=== PATIENT | male | born 1975 | race Two or more races ===

== ENCOUNTER 2023-12-19 09:15 | Emergency (ER) | payer OTHER, MEDICAID, SELFPAY ==
[2023-12-19 09:25] VITALS: BP 147/92; PULSE 127; RESP 20; TEMP 38.9; O2SAT 97; BMI 42.3
--- NOTE | 2023-12-19 09:37 | EKG_ITS ---
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
--- NOTE | 2023-12-19 09:38 | XR_ITS ---
Examination: PA lateral chest 2 views Technique: Upright PA lateral chest 2 views Exam date and time: December 19, 2023 0956 hrs. Indications: Flu symptoms several days Findings: Mild prominence left ventricle No pneumonia or pulmonary edema The osseous structures are intact Impression: No pneumonia or pulmonary edema
--- NOTE | 2023-12-19 09:38 | PD.EDRME ---
Rapid Medical Screening Exam RME Arrival date/time: 12/19/23 09:15 48-year-old male with past medical history of diabetes presents emergency department complaining of fever, body aches, and headache for several days. Chief Complaint: Flu Like Symptoms Time Seen by Provider: 12/19/23 09:30 Vital signs: Vital Signs Temperature 102.0 F H 12/19/23 09:25 Pulse Rate 127 H 12/19/23 09:25 Respiratory Rate 20 12/19/23 09:25 Blood Pressure 147/92 H 12/19/23 09:25 Pulse Oximetry (%) 97 12/19/23 09:25 Oxygen Delivery Method Room Air 12/19/23 09:25
[2023-12-19 10:10] LABS: Lactate (Lactic Acid) 1.3 mMol/L (0.4-2.0)
[2023-12-19 10:12] VITALS: TEMP 38.8
[2023-12-19] MEDS: ACETAMINOPHEN 500 MG TABLET 1000 MG PO (10:12)
[2023-12-19 10:22] LABS: Basophils % (Auto) 0 % (0-2.5); Eosinophils % (Auto) 0 % (0-10); Hematocrit 41.3 % (41.0-53.0); Hemoglobin 14.3 g/dL (13.5-16.0); Immature Granulocytes % (Auto) 0 % (0-0); Immature Granulocytes Auto 0.02 Thou/mm3 (0.00-0.00); Lymphocytes # (Auto) 0.4 Thou/mm3 (1.0-4.8); Lymphocytes % (Auto) 8 % (10-50); Mean Corpuscular HGB Conc 34.6 g/dl (31.0-37.0); Mean Corpuscular Hemoglobin 31.2 pg (25.0-35.0); Mean Corpuscular Volume 90 fL (80-100); Monocytes # (Auto) 0.4 Thou/mm3 (0.0-0.8); Monocytes % (Auto) 7 % (0-12); Neutrophils # (Auto) 4.5 Thou/mm3 (1.8-7.7); Neutrophils % (Auto) 85 % (37-80); Nucleated Red Blood Cell % 0 /100 WBC (0); Platelet Count 121 Thou/mm3 (140-440); RDW Standard Deviation 41.6 fL (35.1-43.9); Red Blood Count 4.59 Miln/mm3 (4.50-5.90); White Blood Count 5.3 Thou/mm3 (3.8-10.6)
[2023-12-19 10:22] LABS: Collection Type, Urine Clean Catch
[2023-12-19 10:36] LABS: B-Type Natriuretic Peptide 41 pg/mL (0-100)
[2023-12-19 10:37] LABS: Alanine Aminotransferase 13 U/L (10-49); Albumin, Serum 4.7 gm/dL (3.5-5.0); Albumin/Globulin Ratio 1.6 (1.2-2.2); Alkaline Phosphatase 124 U/L (46-116); Anion Gap 6 (7-16); Aspartate Amino Transferase 23 U/L (0-34); BUN/Creatinine Ratio 8 Ratio (12-20); Bilirubin,Total 1.2 mg/dL (0.3-1.2); Blood Urea Nitrogen 9 mg/dL (9-23); Calcium 9.5 mg/dL (8.3-10.6); Calcium (Corrected) 9.5 mg/dL (8.5-10.1); Carbon Dioxide 28.7 mMol/L (20.0-31.0); Chloride 99 mMol/L (98-107); Creatinine (Component) 1.2 mg/dL (0.6-1.3); Estimated Creatinine Clearance 101.7 mL/min (>60); Glucose 196 mg/dL (74-106); Lipase 39 U/L (12-53); Magnesium 1.9 mg/dL (1.6-2.6); Osmolality,Calculated 271 (275-295); Potassium 3.8 mMol/L (3.4-5.1); Procalcitonin 0.28 ng/ml (0.0-0.49); Sodium 134 mMol/L (136-145); Total Protein 7.7 gm/dL (5.7-8.2); Troponin I < 0.020 ng/mL (0.0-0.045); eGFR > 60 See Note
[2023-12-19 10:51] LABS: Bilirubin,Urine Negative (Negative); Blood,Urine Trace (Negative); Clarity,Urine Turbid (Clear/Hazy); Color,Urine Lt-Yellow (Lt Yel-Yel); Glucose, Urine Trace (Negative); Ketones,Urine Negative (Negative); Leukocyte Esterase,Urine Positive (Negative); PH,Urine 7.5 (5.0-7.0); Protein,Urine 1+ (Neg - Trace); RBC,Urine 18 /hpf (0-3); Specific Gravity,Urine 1.011 (1.001-1.035); Squamous Epithelial Cell,Urine 1 /hpf (0-5); Transitional Epi Cells,Urine 2 /hpf (0-5); Urobilinogen,Urine Negative mg/dL (0.0-1.0); WBC,Urine 698 /hpf (0-5)
[2023-12-19 10:56] LABS: Culture Indicated,Urine Yes; Nitrite,Urine Negative (Negative)
[2023-12-19 11:06] LABS: INR 1.1 (0.9-1.3); Partial Thromboplastin Time 29.6 Seconds (22.0-36.0); Prothrombin Time 11.7 Seconds (9.0-12.2)
[2023-12-19 12:31] VITALS: BP 116/81; PULSE 75; RESP 18; TEMP 36.9; O2SAT 99
--- NOTE | 2023-12-19 12:37 | PD.EDURI ---
Upper Respiratory Inf. RME/HPI General Chief Complaint: Flu Like Symptoms Stated Complaint: FLU SX FOR A FEW DAYS Time Seen by Provider: 12/19/23 09:30 Arrival date/time: 12/19/23 09:15 RME / HPI RME / HPI Narrative: 48-year-old male patient with significant history of psych disorder, came in for evaluation regarding dysuria. Patient's been having dysuria for the last few days associated with on and off low-grade fever. Denies any cough denies any other complaints no medication was taken prior to arrival. Related Data Home Medications ?Medication ?Instructions ?Recorded ?Confirmed atorvastatin 80 mg tablet 80 mg PO QPM 07/27/21 11/28/23 gabapentin 800 mg tablet 800 mg PO TID 07/27/21 11/28/23 sertraline 100 mg tablet 250 mg PO DAILY 07/27/21 11/28/23 aripiprazole 15 mg tablet 15 mg PO QDAY 06/18/23 11/28/23 tamsulosin 0.4 mg capsule 0.4 mg PO QDAY 06/18/23 11/28/23 cholecalciferol (vitamin D3) 50 50 mcg PO DAILY 11/27/23 11/28/23 mcg (2,000 unit) capsule (Vitamin D3) mirabegron 50 mg tablet,extended 50 mg PO DAILY 11/27/23 11/28/23 release 24 hr (Myrbetriq) omeprazole 20 mg capsule,delayed 20 mg PO QDAY 11/27/23 11/28/23 release trazodone 100 mg tablet 100 mg PO QDAY 11/27/23 11/28/23 ursodiol 300 mg capsule 300 mg PO BID 11/27/23 11/28/23 Previous Rx's ?Medication ?Instructions ?Recorded levetiracetam 500 mg tablet 500 mg PO BID #30 tabs 11/24/22 (Keppra) blood sugar diagnostic (Accu-Chek #50 ea 11/28/23 Guide test strips) blood-glucose meter #1 ea 11/28/23 lancets 30 gauge #100 ea 11/28/23 losartan 25 mg tablet 25 mg PO QDAY #90 tabs 11/28/23 multivitamin with folic acid 400 1 tab PO QDAY #90 tabs 11/28/23 mcg tablet (Tab-A-Willi) semaglutide 14 mg tablet (Rybelsus) 14 mg PO QDAY #90 tabs 11/28/23 ciprofloxacin HCl 500 mg tablet 500 mg PO BID #14 tabs 12/19/23 Allergies Allergy/AdvReac Type Severity Reaction Status Date / Time hydrocodone [From Vicodin] Allergy UNKNOWN Verified 12/19/23 09:17 Penicillins Allergy UNKNOWN Verified 12/19/23 09:17 Review of Systems Review of Systems Narrative Review of Systems: Review of system reviewed and within normal limits except mentioned in HPI ED Exam Narrative Physical exam: VITAL SIGNS: Reviewed. GENERAL APPEARANCE: Alert and interactive, follows commands, no acute distress, HEAD AND FACE: Non-traumatic. ENT: PERRL, pink conjunctivitis, eyelid no trauma, Mucous membrane moist. NECK: Supple, nontender, no nuchal rigidity. CHEST: No tenderness, no crepitus, no paradoxical movement, no retractions. LUNGS: Clear, well ventilated, symmetric, no rales, no wheezing, no ronchi, no stridor, good breath sounds bilaterally. HEART: Regular rate, regular rhythm, no murmur, no gallops. ABDOMEN: Soft, positive bowel sounds, nondistended, no guarding, nontender, no rebound, no masses, RECTAL: Deferred. GENITAL: Deferred. NEUROLOGICAL: Gross motor function intact sensory function intact, Appropriate for age. MUSCULOSKELETAL: low back nontender, full range of motion. EXTREMITIES: Nontender, full range of motion. SKIN: Color pink, dry, no rash, no lacerations, no abrasions, no contusions. LYMPHATICS: Deferred. Course Quality Measures none Orders Category Date Time Status Bedside COVID-19 Antigen Test NOW Care 12/19/23 09:38 Completed Bedside Influenza A&B Antigen Test NOW Care 12/19/23 09:38 Completed EKG (ED ONLY) *Do not use* NOW Care 12/19/23 09:37 Completed EKG (ED Only) Stat Exams 12/19/23 09:37 Draft XR chest 2V Stat Exams 12/19/23 09:38 Completed B-Type Natriuretic Peptide Stat Lab 12/19/23 09:53 Completed Blood Culture (Lab) Stat Lab 12/19/23 09:53 Results CBC Stat Lab 12/19/23 09:53 Completed Comprehensive Metabolic Panel Stat Lab 12/19/23 09:53 Completed Lactate (Lactic Acid) Stat Lab 12/19/23 09:53 Completed Lipase Stat Lab 12/19/23 09:53 Completed Magnesium Stat Lab 12/19/23 09:53 Completed Partial Thromboplastin Time Stat Lab 12/19/23 09:53 Completed Procalcitonin Stat Lab 12/19/23 09:53 Completed Prothrombin Time with INR Stat Lab 12/19/23 09:53 Completed Troponin I Stat Lab 12/19/23 09:53 Completed Urinalysis, C/S if Indicated Stat Lab 12/19/23 10:14 Completed Urine Culture Stat Lab 12/19/23 10:14 Received Acetaminophen Tab [Tylenol ES Tab] Med 12/19/23 09:38 Discontinued 1,000 mg PO X1 ONE cefTRIAXone [Rocephin] 1,000 mg Med 12/19/23 12:37 Discontinued Lidocaine 1% 20 ml [Xylocaine 1% 20 ML] 2.1 ml IM X1 Vital Signs Vital signs: Vital Signs Temperature 102.0 F H 12/19/23 09:25 Pulse Rate 127 H 12/19/23 09:25 Respiratory Rate 20 12/19/23 09:25 Blood Pressure 147/92 H 12/19/23 09:25 Pulse Oximetry (%) 97 12/19/23 09:25 Oxygen Delivery Method Room Air 12/19/23 09:25 Upper Respiratory Infection Patient data External records reviewed:: None Clinical information provided by:: patient Social determinants that could affect healthcare access:: none Patient has the following chronic illnesses:: Hypertension, diabetes mellitus, depression, psych disorder How is presenting disease/condition affected by chronic disease/condition?: exacerbated by Evaluation data The following diagnostics were reviewed and interpreted by me:: lab results, radiology exam(s) and EKG tracing(s) Lab and/or radiology exams considered but not ordered:: None Interpretation Summary: EKG as interpreted by me showed sinus tachycardia, ventricular rate of 132 bpm, no ST segment elevation or depression noted. Laboratory workup came back with significant UTI no leukocytosis noted. I personally reviewed and interpreted the x-ray of this patient. There is no acute abnormalities found, no infiltrates no pneumothorax no hemothorax normal chest x-ray. Review of other structures was without significant abnormal findings also. I additionally reviewed the radiologist report and agree with the interpretation. Medications / Prescriptions Medications or Prescriptions considered but not ordered:: None Medication administrations:: Medication Administration History Discontinued Medications Acetaminophen (Acetaminophen 500 Mg Tablet) 1,000 mg PO X1 ONE Stop: 12/19/23 09:39 Last Admin: 12/19/23 10:12 Dose: 1,000 mg Documented By: NELLY Ceftriaxone Sodium 1,000 mg/ (Lidocaine HCl 2.1 ml) 0 mg IM X1 ONE Stop: 12/19/23 12:38 Last Admin: 12/19/23 13:39 Dose: 1,000 mg Documented By: JOSE Comments: mixed with 1.2ml of lido Tylenol and ceftriaxone IM Consultations Consultation(s) initiated? (list below): No Diagnosis Upper Respiratory Differential Diagnosis: upper respiratory infection, viral infection and other ( uri) Most likely diagnosis given after review of the tests above:: UTI Admission Indicated Admission indicated?: not indicated Explain why admission is indicated or not indicated:: Stable Admission Request Was there a request for admission?: No Disposition Plan Disposition Plan: Discharge Discharge Attestation Discharge Attestation: The patient and all family members were given an opportunity to ask questions and understood the discharge instructions. Discharge instructions specifically effects, indications for sooner follow up or return to the emergency department, and the expected course of current diagnosis. Patient condition: Stable Discharge Plan Plan Patient Disposition: HOME (Self Care) Disposition Comment: stable Prescriptions/Referrals Prescriptions/Med Rec: New ciprofloxacin HCl 500 mg tablet 500 mg PO BID Qty: 14 0RF No Action sertraline 100 mg tablet 250 mg PO DAILY gabapentin 800 mg tablet 800 mg PO TID atorvastatin 80 mg Tablet 80 mg PO QPM trazodone 100 mg Tablet 100 mg PO QDAY ursodiol 300 mg capsule 300 mg PO BID Patient Comments: TAKE 1 CAPSULE BY MOUTH TWICE DAILY omeprazole 20 mg Capsule,Delayed Release(Dr/Ec) 20 mg PO QDAY cholecalciferol (vitamin D3) [Vitamin D3] 50 mcg (2,000 unit) Capsule 50 mcg PO DAILY mirabegron [Myrbetriq] 50 mg tablet extended release 24 hr 50 mg PO DAILY losartan 25 mg tablet 25 mg PO QDAY Qty: 90 0RF Rx Instructions: Stop losartan if SBP drops below 100 and DBP below 60 Rybelsus 14 mg tablet 14 mg PO QDAY Qty: 90 0RF (DME) blood-glucose meter Misc See Rx Instructions .Route Qty: 1 0RF Rx Instructions: As directed (DME) lancets 30 gauge misc See Rx Instructions .Route Qty: 100 0RF Rx Instructions: As directed (DME) Accu-Chek Guide test strips Strip See Rx Instructions .Route Qty: 50 0RF Rx Instructions: As directed multivitamin with folic acid [Tab-A-Willi] 400 mcg Tablet 1 tab PO QDAY Qty: 90 0RF levetiracetam [Keppra] 500 mg tablet 500 mg PO BID Qty: 30 1RF tamsulosin 0.4 mg capsule 0.4 mg PO QDAY aripiprazole 15 mg tablet 15 mg PO QDAY Referrals: No Primary/Family,Physician [Primary Care Provider] - In 1 week Problem List Clinical Impression: UTI (urinary tract infection) Patient/Caregiver Discharge Instructions Discharge Activity: activity as tolerated Education Materials: Understanding Urinary Tract ... Additional Instructions: Thank you for the opportunity for serving you today. You are stable for discharged . You are advised to: Follow-up with your PCP in 1 to 2 days Return to ED for worsening of symptoms Increase oral fluids Take medication as prescribed Print Language: Citizen Of [place] Stand Alone Forms: Ann Award Info., Patient Portal Info Letter Attestation Attestation The patient was seen by the midlevel practitioner. I, the co-signing physician, was present during the entire ER visit. While I did not physically examine the patient, I was available for consultation as needed.
[2023-12-19] MEDS: cefTRIAXone 1,000 MG, LIDOCAINE 1% 20 ML 2.1 ML IM (13:39)
--- NOTE | 2023-12-19 13:40 | PC.NURSE ---
IM ROCEPHINE GIVE. PT HAS ALLERGY TO PCN BUT HAS HAD ROCEPHINE IV BEFORE WITHOUT ANY COMPLICATIONS
== END 2023-12-19 14:13 | disposition home or self-care (01) ==
PROVIDERS: Emergency Provider Emergency Medicine
DX: N39.0 Urinary tract infection, site not specified (principal); R00.0 Tachycardia, unspecified; I10 Essential (primary) hypertension
CPT/HCPCS: 36415; 71046; 80053; 81001; 83605; 83690; 83735; 83880; 84145; 84484; 85025; 85610; 85730; 87040; 87086; 87400; 87811; 93005; 96372; 99283; J0696; J3490; A9270

== ENCOUNTER 2024-01-14 18:16 | Emergency (ER) | payer OTHER, MEDICAID, SELFPAY ==
[2024-01-14 18:19] VITALS: BP 96/68; PULSE 74; RESP 18; TEMP 36.6; O2SAT 97
[2024-01-14 18:24] VITALS: PULSE 81; RESP 18; O2SAT 97; BMI 40.0
--- NOTE | 2024-01-14 18:27 | EKG_ITS ---
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
--- NOTE | 2024-01-14 18:28 | PD.EDADULT ---
ED General RME/HPI General Chief complaint: General Adult/Misc Complain Stated complaint: LOW BLOOD PRESSURE Time Seen by Provider: 01/14/24 18:26 Arrival date/time: 01/14/24 18:16 RME / HPI RME / HPI narrative: 48-year-old male patient with significant history of hypertension, seizure disorder, was brought in by EMS for evaluation regarding dizziness. Patient was lying in bed and was noted to be dizzy, with AMS [place] patient's blood pressure was on the mid 90s. Patient denies any headache denies any chest pain denies any vomiting denies any fever denies any diarrhea patient told me that he took his blood pressure medication earlier this morning. Related Data Home Medications ?Medication ?Instructions ?Recorded ?Confirmed atorvastatin 80 mg tablet 80 mg PO QPM 07/27/21 11/28/23 gabapentin 800 mg tablet 800 mg PO TID 07/27/21 11/28/23 sertraline 100 mg tablet 250 mg PO DAILY 07/27/21 11/28/23 aripiprazole 15 mg tablet 15 mg PO QDAY 06/18/23 11/28/23 tamsulosin 0.4 mg capsule 0.4 mg PO QDAY 06/18/23 11/28/23 cholecalciferol (vitamin D3) 50 50 mcg PO DAILY 11/27/23 11/28/23 mcg (2,000 unit) capsule (Vitamin D3) mirabegron 50 mg tablet,extended 50 mg PO DAILY 11/27/23 11/28/23 release 24 hr (Myrbetriq) omeprazole 20 mg capsule,delayed 20 mg PO QDAY 11/27/23 11/28/23 release trazodone 100 mg tablet 100 mg PO QDAY 11/27/23 11/28/23 ursodiol 300 mg capsule 300 mg PO BID 11/27/23 11/28/23 Previous Rx's ?Medication ?Instructions ?Recorded levetiracetam 500 mg tablet 500 mg PO BID #30 tabs 11/24/22 (Keppra) blood sugar diagnostic (Accu-Chek #50 ea 11/28/23 Guide test strips) blood-glucose meter #1 ea 11/28/23 lancets 30 gauge #100 ea 11/28/23 losartan 25 mg tablet 25 mg PO QDAY #90 tabs 11/28/23 multivitamin with folic acid 400 1 tab PO QDAY #90 tabs 11/28/23 mcg tablet (Tab-A-Willi) semaglutide 14 mg tablet (Rybelsus) 14 mg PO QDAY #90 tabs 11/28/23 ciprofloxacin HCl 500 mg tablet 500 mg PO BID #14 tabs 12/19/23 Allergies Allergy/AdvReac Type Severity Reaction Status Date / Time hydrocodone [From Vicodin] Allergy UNKNOWN Verified 12/19/23 09:17 Penicillins Allergy UNKNOWN Verified 12/19/23 09:17 Review of Systems Review of Systems Narrative Review of Systems: Review of system reviewed and within normal limits except mentioned in HPI ED Exam Narrative Physical exam: VITAL SIGNS: Reviewed. GENERAL APPEARANCE: Alert and interactive, follows commands, no acute distress, HEAD AND FACE: Non-traumatic. ENT: PERRL, pink conjunctivitis, eyelid no trauma, Mucous membrane moist. NECK: Supple, nontender, no nuchal rigidity. CHEST: No tenderness, no crepitus, no paradoxical movement, no retractions. LUNGS: Clear, well ventilated, symmetric, no rales, no wheezing, no ronchi, no stridor, good breath sounds bilaterally. HEART: Regular rate, regular rhythm, no murmur, no gallops. ABDOMEN: Soft, positive bowel sounds, nondistended, no guarding, nontender, no rebound, no masses, RECTAL: Deferred. GENITAL: Deferred. NEUROLOGICAL: Gross motor function intact sensory function intact, Appropriate for age. MUSCULOSKELETAL: low back nontender, full range of motion. EXTREMITIES: Nontender, full range of motion. SKIN: Color pink, dry, no rash, no lacerations, no abrasions, no contusions. LYMPHATICS: Deferred. Course Quality Measures none Orders Category Date Time Status EKG (ED ONLY) *Do not use* NOW Care 01/14/24 18:27 Completed EKG (ED Only) Stat Exams 01/14/24 18:27 Draft CBC Stat Lab 01/14/24 18:40 Completed Comprehensive Metabolic Panel Stat Lab 01/14/24 18:40 Completed Partial Thromboplastin Time Stat Lab 01/14/24 18:40 Completed Urinalysis, C/S if Indicated Stat Lab 01/14/24 18:27 Stop Req Vital Signs Vital signs: Vital Signs Temperature 98 F 01/14/24 18:19 Pulse Rate 74 01/14/24 18:19 Respiratory Rate 18 01/14/24 18:19 Blood Pressure 96/68 01/14/24 18:19 Pulse Oximetry (%) 97 01/14/24 18:19 Oxygen Delivery Method Room Air 01/14/24 18:19 [facility] Patient data External records reviewed:: None Clinical information provided by:: patient Social determinants that could affect healthcare access:: none Patient has the following chronic illnesses:: Diabetes hypertension seizure disorder How is presenting disease/condition affected by chronic disease/condition?: exacerbated by Evaluation data The following diagnostics were reviewed and interpreted by me:: lab results and radiology exam(s) Lab and/or radiology exams considered but not ordered:: None Interpretation Summary: EKG also interpreted by me showed sinus rhythm, ventricular rate of 86 bpm, no ST segment elevation or depression noted. Laboratory workup all came back unremarkable Medications Medications considered but not ordered:: None Medication administrations:: None Consultations Consultation(s) initiated? (list below): No Diagnosis Differential Diagnosis ED Complaint MDM: Dizziness, dehydration, hypotension Most likely diagnosis given after review of the tests above:: Dizziness Admission Indicated Admission indicated?: not indicated Explain why admission is indicated or not indicated:: Stable Admission Request Was there a request for admission?: No Disposition Plan Disposition Plan: Discharge Discharge Attestation Discharge Attestation: The patient was given an opportunity to ask questions and understood the discharge instructions. Discharge instructions specifically effects, indications for sooner follow up or return to the emergency department, and the expected course of current diagnosis. Patient condition: Stable Medical Decision Making Differential Diagnosis Differential Diagnosis: Dizziness, dehydration, hypotension Lab Data 01/14/24 18:40 01/14/24 18:40 Labs: Lab Results 01/14/24 Range/Units 18:40 WBC 5.0 (3.8-10.6) Thou/mm3 RBC 4.24 L (4.50-5.90) Miln/mm3 Hgb 13.2 L (13.5-16.0) g/dL Hct 38.3 L (41.0-53.0) % MCV 90 (80-100) fL MCH 31.1 (25.0-35.0) pg MCHC 34.5 (31.0-37.0) g/dl RDW Std Deviation 41.1 (35.1-43.9) fL Plt Count 94 L D (140-440) Thou/mm3 Neut % (Auto) 47 (37-80) % Lymph % (Auto) 41 (10-50) % [place] % (Auto) 10 (0-12) % Eos % (Auto) 2 (0-10) % Baso % (Auto) 0 (0-2.5) % Neut # (Auto) 2.4 (1.8-7.7) Thou/mm3 Lymph # (Auto) 2.0 (1.0-4.8) Thou/mm3 [place] # (Auto) 0.5 (0.0-0.8) Thou/mm3 Eos # (Auto) 0.1 (0.0-0.5) Thou/mm3 Baso # (Auto) 0.0 (0.0-0.2) Thou/mm3 Immature Gran # (Auto) 0.00 (0.00-0.00) Thou/mm3 Absolute Nucleated RBC 0.00 (0.00-0.00) Thou/mm3 Immature Gran % 0 (0-0) % Nucleated RBC % 0 (0) /100 WBC APTT 26.0 (22.0-36.0) Seconds Sodium 140 (136-145) mMol/L Potassium 3.4 (3.4-5.1) mMol/L Chloride 101 (98-107) mMol/L Carbon Dioxide 31.4 H (20.0-31.0) mMol/L Anion Gap 8 (7-16) BUN 15 (9-23) mg/dL Creatinine 1.4 H (0.6-1.3) mg/dL Estim Creat Clear Calc 87.1 (>60) mL/min eGFR > 60 (60 - ) See Note BUN/Creatinine Ratio 11 L (12-20) Ratio Glucose 122 H (74-106) mg/dL Calculated Osmolality 281 (275-295) Calcium 9.3 (8.3-10.6) mg/dL Corrected Calcium 9.3 (8.5-10.1) mg/dL Total Bilirubin 0.4 (0.3-1.2) mg/dL AST 19 (0-34) U/L ALT 14 (10-49) U/L Alkaline Phosphatase 118 H (46-116) U/L Total Protein 6.7 (5.7-8.2) gm/dL Albumin 4.4 (3.5-5.0) gm/dL Globulin 2.3 (2.3-3.5) gm/dL Albumin/Globulin Ratio 1.9 (1.2-2.2) Discharge Plan Plan Patient Disposition: HOME (Self Care) Disposition Comment: Stable Prescriptions/Referrals Prescriptions/Med Rec: No Action sertraline 100 mg tablet 250 mg PO DAILY gabapentin 800 mg tablet 800 mg PO TID atorvastatin 80 mg Tablet 80 mg PO QPM trazodone 100 mg Tablet 100 mg PO QDAY ursodiol 300 mg capsule 300 mg PO BID Patient Comments: TAKE 1 CAPSULE BY MOUTH TWICE DAILY omeprazole 20 mg Capsule,Delayed Release(Dr/Ec) 20 mg PO QDAY cholecalciferol (vitamin D3) [Vitamin D3] 50 mcg (2,000 unit) Capsule 50 mcg PO DAILY mirabegron [Myrbetriq] 50 mg tablet extended release 24 hr 50 mg PO DAILY losartan 25 mg tablet 25 mg PO QDAY Qty: 90 0RF Rx Instructions: Stop losartan if SBP drops below 100 and DBP below 60 Rybelsus 14 mg tablet 14 mg PO QDAY Qty: 90 0RF (DME) blood-glucose meter Misc See Rx Instructions .Route Qty: 1 0RF Rx Instructions: As directed (DME) lancets 30 gauge misc See Rx Instructions .Route Qty: 100 0RF Rx Instructions: As directed (DME) Accu-Chek Guide test strips Strip See Rx Instructions .Route Qty: 50 0RF Rx Instructions: As directed multivitamin with folic acid [Tab-A-Willi] 400 mcg Tablet 1 tab PO QDAY Qty: 90 0RF ciprofloxacin HCl 500 mg tablet 500 mg PO BID Qty: 14 0RF levetiracetam [Keppra] 500 mg tablet 500 mg PO BID Qty: 30 1RF tamsulosin 0.4 mg capsule 0.4 mg PO QDAY aripiprazole 15 mg tablet 15 mg PO QDAY Referrals: Ying Dalton [Primary Care Provider] - In 1 week Problem List Clinical Impression: Dizziness Patient/Caregiver Discharge Instructions Discharge Activity: activity as tolerated Education Materials: ED Dizziness, Uncertain Cause Additional Instructions: Thank you for the opportunity for serving you today. You are stable for discharged . You are advised to: Follow-up with your PCP in 1 to 2 days Return to ED for worsening of symptoms Increase oral fluids Print Language: [place]ic Stand Alone Forms: Ann Award Info., Patient Portal Info Letter PA/FINANCIAL MANAGEMENT CONSULTANT Supervising Physician PA/FINANCIAL MANAGEMENT CONSULTANT Supervising Physician: MD Jeri
[2024-01-14 18:39] VITALS: BP 112/69; PULSE 86; RESP 18; TEMP 36.6; O2SAT 96
[2024-01-14 19:09] LABS: Basophils % (Auto) 0 % (0-2.5); Eosinophils # (Auto) 0.1 Thou/mm3 (0.0-0.5); Eosinophils % (Auto) 2 % (0-10); Hematocrit 38.3 % (41.0-53.0); Hemoglobin 13.2 g/dL (13.5-16.0); Immature Granulocytes % (Auto) 0 % (0-0); Lymphocytes % (Auto) 41 % (10-50); Mean Corpuscular HGB Conc 34.5 g/dl (31.0-37.0); Mean Corpuscular Hemoglobin 31.1 pg (25.0-35.0); Mean Corpuscular Volume 90 fL (80-100); Monocytes # (Auto) 0.5 Thou/mm3 (0.0-0.8); Monocytes % (Auto) 10 % (0-12); Neutrophils # (Auto) 2.4 Thou/mm3 (1.8-7.7); Neutrophils % (Auto) 47 % (37-80); Nucleated Red Blood Cell % 0 /100 WBC (0); Platelet Count 94 Thou/mm3 (140-440); RDW Standard Deviation 41.1 fL (35.1-43.9); Red Blood Count 4.24 Miln/mm3 (4.50-5.90)
[2024-01-14 19:30] LABS: Alanine Aminotransferase 14 U/L (10-49); Albumin, Serum 4.4 gm/dL (3.5-5.0); Albumin/Globulin Ratio 1.9 (1.2-2.2); Alkaline Phosphatase 118 U/L (46-116); Anion Gap 8 (7-16); Aspartate Amino Transferase 19 U/L (0-34); BUN/Creatinine Ratio 11 Ratio (12-20); Bilirubin,Total 0.4 mg/dL (0.3-1.2); Blood Urea Nitrogen 15 mg/dL (9-23); Calcium 9.3 mg/dL (8.3-10.6); Calcium (Corrected) 9.3 mg/dL (8.5-10.1); Carbon Dioxide 31.4 mMol/L (20.0-31.0); Chloride 101 mMol/L (98-107); Creatinine (Component) 1.4 mg/dL (0.6-1.3); Estimated Creatinine Clearance 87.1 mL/min (>60); Globulin 2.3 gm/dL (2.3-3.5); Glucose 122 mg/dL (74-106); Osmolality,Calculated 281 (275-295); Potassium 3.4 mMol/L (3.4-5.1); Sodium 140 mMol/L (136-145); Total Protein 6.7 gm/dL (5.7-8.2); eGFR > 60 See Note
[2024-01-14 20:24] VITALS: BP 117/80; PULSE 77; RESP 15; O2SAT 97
[2024-01-14 22:00] VITALS: BP 120/82; PULSE 82; RESP 18; O2SAT 97
== END 2024-01-14 22:20 | disposition home or self-care (01) ==
PROVIDERS: Nurse Practitioner Family; Emergency Provider Emergency Medicine; PCP Family Medicine
DX: R42 Dizziness and giddiness (principal); I10 Essential (primary) hypertension
CPT/HCPCS: 36415; 80053; 81001; 85025; 85730; 93005; 99283

== ENCOUNTER 2024-01-27 07:11 | Emergency (ER) | payer OTHER, MEDICAID, SELFPAY ==
[2024-01-27 07:20] VITALS: BP 115/80; PULSE 99; RESP 16; TEMP 37.1; O2SAT 98; BMI 40.3
--- NOTE | 2024-01-27 07:28 | EDNOTE_ITS ---
Lower Extremity Injury RME/HPI General Chief Complaint: Ankle/Foot Injury Stated Complaint: LEFT FOOT PAIN/SWELLING/DISCOLORATION Time Seen by Provider: 01/27/24 07:18 Arrival date/time: 01/27/24 07:11 48-year-old male with medical history significant for hypertension and diabetes presents to the emergency department complains of left foot pain patient reports that he twisted his left foot while taking out the trash 5 days ago and since then has been having pain and swelling to the dorsal aspect of the left foot patient reports no other injuries Limitations: no limitations Related Data Home Medications ?Medication ?Instructions ?Recorded ?Confirmed atorvastatin 80 mg tablet 80 mg PO QPM 07/27/21 11/28/23 gabapentin 800 mg tablet 800 mg PO TID 07/27/21 11/28/23 sertraline 100 mg tablet 250 mg PO DAILY 07/27/21 11/28/23 aripiprazole 15 mg tablet 15 mg PO QDAY 06/18/23 11/28/23 tamsulosin 0.4 mg capsule 0.4 mg PO QDAY 06/18/23 11/28/23 cholecalciferol (vitamin D3) 50 50 mcg PO DAILY 11/27/23 11/28/23 mcg (2,000 unit) capsule (Vitamin D3) mirabegron 50 mg tablet,extended 50 mg PO DAILY 11/27/23 11/28/23 release 24 hr (Myrbetriq) omeprazole 20 mg capsule,delayed 20 mg PO QDAY 11/27/23 11/28/23 release trazodone 100 mg tablet 100 mg PO QDAY 11/27/23 11/28/23 ursodiol 300 mg capsule 300 mg PO BID 11/27/23 11/28/23 Previous Rx's ?Medication ?Instructions ?Recorded levetiracetam 500 mg tablet 500 mg PO BID #30 tabs 11/24/22 (Keppra) blood sugar diagnostic (Accu-Chek #50 ea 11/28/23 Guide test strips) blood-glucose meter #1 ea 11/28/23 lancets 30 gauge #100 ea 11/28/23 losartan 25 mg tablet 25 mg PO QDAY #90 tabs 11/28/23 multivitamin with folic acid 400 1 tab PO QDAY #90 tabs 11/28/23 mcg tablet (Tab-A-Willi) semaglutide 14 mg tablet (Rybelsus) 14 mg PO QDAY #90 tabs 11/28/23 ciprofloxacin HCl 500 mg tablet 500 mg PO BID #14 tabs 12/19/23 hydrocodone 5 mg-acetaminophen 325 1 tab PO BID PRN pain #10 tabs 01/27/24 mg tablet Allergies Allergy/AdvReac Type Severity Reaction Status Date / Time Penicillins Allergy UNKNOWN Verified 12/19/23 09:17 Review of Systems Review of Systems Systems Reviewed: All systems reviewed, normal except as documented Constitutional Constitutional: Reports system reviewed and no additional complaints, except as documented, Denies fatigue, Denies fever(s) and Denies headache(s) Eyes Eyes: Reports system reviewed and no additional complaints, except as documented ENT Ears, Nose, Mouth, and Throat: Reports system reviewed and no additional complaints, except as documented, Denies dizziness and Denies headache(s) Cardiovascular Cardiovascular: Reports system reviewed and no additional complaints, except as documented, Denies chest pain, Denies dyspnea and Denies dyspnea on exertion Respiratory Respiratory: Reports system reviewed and no additional complaints, except as documented, Denies chest congestion, Denies cough, Denies dyspnea and Denies dyspnea on exertion Gastrointestinal Gastrointestinal: Reports system reviewed and no additional complaints, except as documented, Denies abdominal pain, Denies nausea and Denies vomiting Musculoskeletal Musculoskeletal: Reports system reviewed and no additional complaints, except as documented, Denies abnormal gait, Denies numbness, Denies stiffness and Denies tingling Integumentary/Breasts Skin/Breast: Reports system reviewed and no additional complaints, except as documented, Denies rash and Denies wounds Neurologic Neurologic: Reports system reviewed and no additional complaints, except as documented, Denies abnormal gait, Denies dizziness, Denies headache(s), Denies numbness and Denies tingling Psychiatric Psychiatric: Reports system reviewed and no additional complaints, except as documented and Denies anxiety Endocrine Endocrine: Denies fatigue Past Medical History Past Medical History NEUROLOGIC: Negative Neurological Disorders or Head Trauma CARDIAC: Positive Cardiac Disorders, Hypercholesterolemia and Hypertension; Negative Myocardial Infarction, Cardiac Arrhythmia, Atrial Fibrillation, Angina, Heart Murmur, Coronary Artery Disease, Atherosclerotic Heart Disease, Peripheral Vascular Disease, Aneurysm, Congestive Heart Failure, Congenital Heart Disease, Valvular Heart Disease, Rheumatic Fever, Cardiomyopathy, Edema, Pericarditis, Cellulitis, Deep Vein Thrombosis, Hypotension or Varicose Veins RESPIRATORY: Positive Sleep Apnea (uses bipap at home); Negative Chronic Obstructive Pulmonary Disease (COPD), Asthma, Bronchitis, Emphysema, Pneumonia, Pulmonary Fibrosis, Cystic Fibrosis, Tuberculosis, Pulmonary Embolism or Pulmonary Edema GASTROINTESTINAL: Positive Gastrointestinal Disorders, Gastroesophageal Reflux Disease and Obesity; Negative Liver Cancer, Hepatitis, Cirrhosis, Pancreatic Cancer, Pancreatitis, Celiac Disease, Gall Bladder Disease, Gastrointestinal Bleed, Esophageal Varices, Campbell's Esophagus, Colitis, Ulcerative Colitis, Diverticulitis, Diverticulosis, Ulcer, Colorectal Cancer, Irritable Bowel, Crohn's Disease, Obstructive Bowel, Hiatal Hernia or Hemorrhoids GENITOURINARY: Negative Genitourinary Disorders, Renal Disease, Kidney Stones, Polycystic Kidney Disease, Neurogenic Bladder, Inguinal Hernia, Dialysis, Prostate Cancer or Benign Prostatic Hyperplasia REPRODUCTIVE: Negative Breast Cancer, Fibroids, Genital Herpes, Gonorrhea, Syphilis or Testicular Cancer MUSCULOSKELETAL: Negative Musculoskeletal Disorders, Muscular Dystrophy, Myasthenia Gravis, Marfan's Syndrome, Bone Cancer, Arthritis, Rheumatoid Arthritis, Osteoporosis, Degenerative Disk Disease, Gout, Scoliosis, Carpal Tunnel Syndrome, Fibromyalgia, Fractures, Degenerative Joint Disease, Osteomyelitis or Poliovirus ENT: Negative Cataracts, Glaucoma, Blind, Retinal Detachment, Macular Degeneration, Ear Infection, Deafness, Head Trauma or Eye Prosthesis ENDOCRINE: Positive Endocrine Disorders and Diabetes Mellitus Type 2; Negative Diabetes Mellitus Type 1, Hypoglycemia, [place]'s Syndrome, Mosheim's Disease, Hyperthyroidism, Hypothyroidism, Thyroid Cancer, Parathyroid Disease, Pituitary Disease, Systemic Lupus Erythematosus, Syndrome of Inappropriate Antidiuretic Hormone (SIADH), Adrenal Disease or Graves' Disease HEMATOLOGIC: Negative Blood Disorders, Anemia, Leukemia, Hemophilia, Thalassemia, Sickle Cell Disease or Clotting Problems PSYCHO/SOCIAL: Positive Schizophrenia, Bipolar Disorder, Depression and Anxiety; Negative Psychiatric Problems, Recreational Drug Use, Behavior Problems, Self- Mutilation, Attention Deficit Disorder, Attention Deficit Hyperactivity Disorder, Depression, Post Traumatic Stress Disorder or Eating Disorder OTHER HISTORY: Positive Chicken Pox; Negative Hospitalization, Autoimmune Disease, Down Syndrome, Autism, Developmental Delay, Shingles, Falls, Blood Transfusions, Anesthesia Reactions, Organ Transplant, Chemotherapy, Radiation Therapy, Hyperbaric Therapy, MRSA, VRSA, Vancomycin-Resistant Enterococci, Human Immunodeficiency Virus (HIV), Measles, Mumps, Rubella (T[place]anian Measles), Pertussis, Clostridium Difficile, Cancer, Breast Cancer, Cervical Cancer, Colorectal Cancer, Lung Cancer, Ovarian Cancer, Prostate Cancer or Testicular Cancer Family History FAMILY HISTORY: Positive Family Cancer; Negative Family Psychiatric Problems, Family Respiratory Disorders, Family Cardiac Disorders, Family Gastrointestinal Problems, Family Surgery or Family Anesthesia Reaction Surgical History SURGICAL: Positive Tonsillectomy ( in the ) and Open Reduction Internal Fixation (L an); Negative Cardiac Surgery, Open Heart Surgery, Coronary Artery Bypass Graft, Valve Replacement, Vascular Surgery, Coronary Stent, Cardiac Catheterization, Pacemaker, Angiogram, Auto Implanted Cardiovert Defib, Carotid Endarterectomy, Endocrine Surgery, Thyroidectomy, Ear Surgery, Tympanostomy Tube, Eye Surgery, Nose Surgery, Oral Surgery, Adenoidectomy, Cochlear Implant, Corneal Transplant, Throat Surgery, Abdominal Surgery, Tracheostomy, Gastric Bypass Surgery, Gastrostomy, Bowel Surgery, Nephrectomy, Transurethral Resection, Joint Replacement, Amputation, Arthroscopy, Neurologic Surgery, Brain Shunt, Mastectomy, Lumpectomy, Hysterectomy, Tubal Ligation, Section, Vasectomy or Organ Transplant Social History SMOKING STATUS: Never smoker SECOND HAND EXPOSURE: Yes ED Exam General Limitations: Present no limitations General appearance: Present alert and in no apparent distress Head Head exam: Present atraumatic Eye Eye exam: Present normal appearance, PERRL and EOMI ENT ENT exam: Present normal exam, normal oropharynx and mucous membranes moist Neck Neck exam: Present normal inspection, full ROM and trachea midline Chest Chest inspection: Present normal inspection and symmetric chest wall rise Respiratory Respiratory exam: Present normal lung sounds bilaterally Cardiovascular Cardiovascular exam: Present regular rate, normal rhythm and normal heart sounds Abdominal Exam Abdominal exam: Present soft and normal bowel sounds Extremities Exam Extremities exam: Present full ROM, tenderness, normal capillary refill, joint swelling and other (Bruising dorsal aspect left foot) Back Exam Back exam: Present normal inspection and full ROM Neurological Exam Neurological exam: Present alert, oriented X3 and CN II-XII intact Psychiatric Psychiatric exam: Present normal affect and normal mood Skin Skin exam: Present warm, dry, intact and normal color Course Quality Measures none Orders Category Date Time Status Splint / Immobilizer STAT Care 01/27/24 09:42 Completed XR foot comp LT min 3V Stat Exams 01/27/24 07:28 Completed Vital Signs Vital signs: Vital Signs Temperature 98.7 F 01/27/24 07:20 Pulse Rate 99 01/27/24 07:20 Respiratory Rate 16 01/27/24 07:20 Blood Pressure 115/80 01/27/24 07:20 Pulse Oximetry (%) 98 01/27/24 07:20 Oxygen Delivery Method Room Air 01/27/24 07:20 O2 saturation 98% room air within normal limits Procedures -ED Splint Fabrication: Clinician Made Type: Posterior Leg Reason for Splint: Optimal Positioning, Pain Management and Minimize Deformities Circulation Distal to Splint: Yes Movement Distal to Splint: Yes Senation Distal to Splint: Yes Tolerance: Tolerates Well Extremity Injury, Lower MDM Narrative MDM Narrative:: 48-year-old male with medical history significant for hypertension and diabetes presents to the emergency department complains of left foot pain patient reports that he twisted his left foot while taking out the trash 5 days ago and since then has been having pain and swelling to the dorsal aspect of the left foot patient reports no other injuries On exam patient well-appearing patient does not appear ill or toxic patient walks with steady gait On examination of the patient's foot patient is mild swelling to the dorsal aspect of the left foot X-rays of the left foot obtained patient appears a fracture fifth metatarsal Patient placed in posterior short leg splint Patient reports that he has a walker at home that he will use Patient discharged home in no distress to follow-up with orthopedist as discussed patient instructed to remain nonweightbearing and for any worsening symptoms to return to the ER immediately Patient data External records reviewed:: [facility] previous records Clinical information provided by:: patient Social determinants that could affect healthcare access:: none Patient has the following chronic illnesses:: See history How is presenting disease/condition affected by chronic disease/condition?: uneffected by Evaluation data The following diagnostics were reviewed and interpreted by me:: radiology exam(s) Lab and/or radiology exams considered but not ordered:: Radiology obtain Interpretation Summary: Reviewed by me Medications / Prescriptions Medications or Prescriptions considered but not ordered:: Given Medication administrations:: Given Consultations Consultation(s) initiated? (list below): No Diagnosis Extremity Injury, Lower Differential Diagnosis: fracture of toe and other (Foot sprain) Most likely diagnosis given after review of the tests above:: Foot pain Admission Indicated Admission indicated?: not indicated Admission Request Was there a request for admission?: No Disposition Plan Disposition Plan: Discharge Discharge Attestation Discharge Attestation: The patient and all family members were given an opportunity to ask questions and understood the discharge instructions. Discharge instructions specifically effects, indications for sooner follow up or return to the emergency department, and the expected course of current diagnosis. Patient condition: Stable Discharge Plan Plan Patient Disposition: HOME (Self Care) Disposition Comment: Stable Prescriptions/Referrals Prescriptions/Med Rec: New hydrocodone-acetaminophen 5-325 mg tablet 1 tab PO BID MDD 10 PRN (Reason: pain) Qty: 10 0RF No Action sertraline 100 mg tablet 250 mg PO DAILY gabapentin 800 mg tablet 800 mg PO TID atorvastatin 80 mg Tablet 80 mg PO QPM trazodone 100 mg Tablet 100 mg PO QDAY ursodiol 300 mg capsule 300 mg PO BID Patient Comments: TAKE 1 CAPSULE BY MOUTH TWICE DAILY omeprazole 20 mg Capsule,Delayed Release(Dr/Ec) 20 mg PO QDAY cholecalciferol (vitamin D3) [Vitamin D3] 50 mcg (2,000 unit) Capsule 50 mcg PO DAILY mirabegron [Myrbetriq] 50 mg tablet extended release 24 hr 50 mg PO DAILY losartan 25 mg tablet 25 mg PO QDAY Qty: 90 0RF Rx Instructions: Stop losartan if SBP drops below 100 and DBP below 60 Rybelsus 14 mg tablet 14 mg PO QDAY Qty: 90 0RF (DME) blood-glucose meter Misc See Rx Instructions .Route Qty: 1 0RF Rx Instructions: As directed (DME) lancets 30 gauge misc See Rx Instructions .Route Qty: 100 0RF Rx Instructions: As directed (DME) Accu-Chek Guide test strips Strip See Rx Instructions .Route Qty: 50 0RF Rx Instructions: As directed multivitamin with folic acid [Tab-A-Willi] 400 mcg Tablet 1 tab PO QDAY Qty: 90 0RF ciprofloxacin HCl 500 mg tablet 500 mg PO BID Qty: 14 0RF levetiracetam [Keppra] 500 mg tablet 500 mg PO BID Qty: 30 1RF tamsulosin 0.4 mg capsule 0.4 mg PO QDAY aripiprazole 15 mg tablet 15 mg PO QDAY Referrals: Ying Dalton [Primary Care Provider] - In 1 week Problem List Clinical Impression: Metatarsal fracture Patient/Caregiver Discharge Instructions Education Materials: ED Fracture, Foot Additional Instructions: Please follow up with your primary care doctor in the next 24-48hrs for any worsening symptoms return here immediately Print Language: Bhutanese Stand Alone Forms: Ann Award Info., Patient Portal Info Letter PA/RECYCLING TECHNICIAN Supervising Physician PA/RECYCLING TECHNICIAN Supervising Physician: charmaine
--- NOTE | 2024-01-27 07:28 | XR_ITS ---
Examination: Foot, left, 3 views Technique: AP, oblique, lateral views foot, 3 views Date and time of exam: January 27, 2024 at 0811 hours INDICATIONS: Patient fell 5 days ago with injury to the foot, foot pain. FINDINGS: Acute fracture base fifth metatarsal, without significant displacement Prominent bunion deformity with significant osteoarthritis first metatarsophalangeal joint IMPRESSION: Acute fracture base fifth metatarsal, on the lateral view 2.7 mm separation at the main fracture site
== END 2024-01-27 09:58 | disposition home or self-care (01) ==
PROVIDERS: Emergency Provider Emergency Medicine; PCP Family Medicine
DX: S92.355A Nondisplaced fracture of fifth metatarsal bone, left foot, initial encounter for closed fracture (principal); X50.1XXA Overexertion from prolonged static or awkward postures, initial encounter
CPT/HCPCS: 73630; 99283

== ENCOUNTER 2024-04-13 13:06 | Emergency (ER) | payer OTHER, MEDICAID, SELFPAY ==
[2024-04-13 13:07] VITALS: BP 138/93; PULSE 111; RESP 18; TEMP 37.2; O2SAT 95; BMI 41.3
[2024-04-13 13:10] VITALS: PULSE 103; RESP 16; O2SAT 95
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
[2024-04-13] MEDS: ONDANSETRON ODT 4 MG TABRAP PO (14:38)
== END 2024-04-13 17:48 | disposition home or self-care (01) ==
PROVIDERS: Emergency Provider Emergency Medicine; PCP Family Medicine
DX: S80.02XA Contusion of left knee, initial encounter (principal); V03.90XA Pedestrian on foot injured in collision with car, pick-up truck or van, unspecified whether traffic or nontraffic accident, initial encounter; Y09 Assault by unspecified means; S09.90XA Unspecified injury of head, initial encounter; M54.2 Cervicalgia
CPT/HCPCS: 70450; 70486; 71250; 72125; 73562; 74176; 99284; Q0162

== ENCOUNTER 2024-07-03 10:02 | Emergency (ER) | payer OTHER, MEDICAID, SELFPAY ==
--- NOTE | 2024-07-03 10:04 | EKG_ITS ---
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
[2024-07-03 10:07] VITALS: PULSE 103; RESP 16; O2SAT 98
[2024-07-03 10:10] VITALS: BP 104/77; PULSE 101; RESP 20; TEMP 37.1; O2SAT 93; BMI 39.6
--- NOTE | 2024-07-03 10:17 | PD.EDADULT ---
ED General RME/HPI General Chief complaint: Seizure Stated complaint: SEIZURE Time Seen by Provider: 07/03/24 10:10 Arrival date/time: 07/03/24 10:02 Limitations: no limitations RME / HPI RME / HPI narrative: DR. BRUNO MAIN ED EVALUATION: 48 year old male with past medical history significant for seizure disorder presents to the Emergency Department [facility] with complaint of seizure with tonic/clonic activity, prior to arrival and lasting about 1 minute. Patient states he was on a higher dose of Keppra but his neurologist reduced it since he was not having a lot of seizures and tried to discontinue; neurologist did keep him on low dose Keppra 500 mg also for a mood disorder. Patient reports he usually knows when he is going to get a seizure, he felt fatigued for the last few weeks. No fall, injury, or other symptoms reported at this time. Related Data Home Medications ?Medication ?Instructions ?Recorded ?Confirmed atorvastatin 80 mg tablet 80 mg PO QPM 07/27/21 11/28/23 gabapentin 800 mg tablet 800 mg PO TID 07/27/21 11/28/23 sertraline 100 mg tablet 250 mg PO DAILY 07/27/21 11/28/23 aripiprazole 15 mg tablet 15 mg PO QDAY 06/18/23 11/28/23 tamsulosin 0.4 mg capsule 0.4 mg PO QDAY 06/18/23 11/28/23 cholecalciferol (vitamin D3) 50 50 mcg PO DAILY 11/27/23 11/28/23 mcg (2,000 unit) capsule (Vitamin D3) mirabegron 50 mg tablet,extended 50 mg PO DAILY 11/27/23 11/28/23 release 24 hr (Myrbetriq) omeprazole 20 mg capsule,delayed 20 mg PO QDAY 11/27/23 11/28/23 release trazodone 100 mg tablet 100 mg PO QDAY 11/27/23 11/28/23 ursodiol 300 mg capsule 300 mg PO BID 11/27/23 11/28/23 Previous Rx's ?Medication ?Instructions ?Recorded levetiracetam 500 mg tablet 500 mg PO BID #30 tabs 11/24/22 (Keppra) blood sugar diagnostic (Accu-Chek #50 ea 11/28/23 Guide test strips) blood-glucose meter #1 ea 11/28/23 lancets 30 gauge #100 ea 11/28/23 losartan 25 mg tablet 25 mg PO QDAY #90 tabs 11/28/23 multivitamin with folic acid 400 1 tab PO QDAY #90 tabs 11/28/23 mcg tablet (Tab-A-Willi) semaglutide 14 mg tablet (Rybelsus) 14 mg PO QDAY #90 tabs 11/28/23 ciprofloxacin HCl 500 mg tablet 500 mg PO BID #14 tabs 12/19/23 hydrocodone 5 mg-acetaminophen 325 1 tab PO BID PRN pain #10 tabs 01/27/24 mg tablet Allergies Allergy/AdvReac Type Severity Reaction Status Date / Time Penicillins Allergy UNKNOWN Verified 04/13/24 13:18 Review of Systems Review of Systems Systems Reviewed: All systems reviewed, normal except as documented Past Medical History Past Medical History NEUROLOGIC: Positive Seizures and Epilepsy CARDIAC: Positive Cardiac Disorders, Hypercholesterolemia and Hypertension RESPIRATORY: Positive Sleep Apnea GASTROINTESTINAL: Positive Gastrointestinal Disorders, Gastroesophageal Reflux Disease and Obesity ENDOCRINE: Positive Endocrine Disorders and Diabetes Mellitus Type 2 PSYCHO/SOCIAL: Positive Schizophrenia, Bipolar Disorder, Depression and Anxiety OTHER HISTORY: Positive Chicken Pox Family History FAMILY HISTORY: Positive Family Cancer Surgical History SURGICAL: Positive Tonsillectomy and Open Reduction Internal Fixation Social History SMOKING STATUS: Former smoker SECOND HAND EXPOSURE: Yes SUBSTANCE USE: does not use ALCOHOL: Never ED Exam General Limitations: Present no limitations General appearance: Present alert, in no apparent distress and other (drowsy but arousable, gives good history) Head Head exam: Present atraumatic, normocephalic and normal inspection Eye Eye exam: Present normal appearance, PERRL and EOMI ENT ENT exam: Present normal exam, normal oropharynx and mucous membranes moist Neck Neck exam: Present normal inspection, full ROM and trachea midline Chest Chest inspection: Present normal inspection and symmetric chest wall rise Respiratory Respiratory exam: Present normal lung sounds bilaterally Cardiovascular Cardiovascular exam: Present regular rate, normal rhythm and normal heart sounds Abdominal Exam Abdominal exam: Present soft and normal bowel sounds Extremities Exam Extremities exam: Present normal inspection and full ROM Back Exam Back exam: Present normal inspection and full ROM Neurological Exam Neurological exam: Present alert, oriented X3 and CN II-XII intact Psychiatric Psychiatric exam: Present normal affect and normal mood Skin Skin exam: Present warm, dry, intact and normal color Course Quality Measures none Orders Category Date Time Status EKG (ED ONLY) *Do not use* NOW Care 07/03/24 10:[address] head/brain wo con Stat Exams 07/03/24 10:23 Completed EKG (ED Only) Stat Exams 07/03/24 10:04 Draft CBC Stat Lab 07/03/24 10:50 Completed CMP [Comprehensive Metabolic Panel] Stat Lab 07/03/24 10:50 Completed levETIRAcetam INJ [Keppra Inj] Med 07/03/24 10:19 Discontinued 1,000 mg IVP X1 ONE Vital Signs Vital signs: Vital Signs Temperature 98.7 F 07/03/24 10:10 Pulse Rate 101 H 07/03/24 10:10 Respiratory Rate 20 07/03/24 10:10 Blood Pressure 104/77 07/03/24 10:10 Pulse Oximetry (%) 93 L 07/03/24 10:10 Oxygen Delivery Method Room Air 07/03/24 10:10 Discharge Plan Prescriptions/Referrals Prescriptions/Med Rec: No Action sertraline 100 mg tablet 250 mg PO DAILY gabapentin 800 mg tablet 800 mg PO TID atorvastatin 80 mg Tablet 80 mg PO QPM trazodone 100 mg Tablet 100 mg PO QDAY ursodiol 300 mg capsule 300 mg PO BID Patient Comments: TAKE 1 CAPSULE BY MOUTH TWICE DAILY omeprazole 20 mg Capsule,Delayed Release(Dr/Ec) 20 mg PO QDAY cholecalciferol (vitamin D3) [Vitamin D3] 50 mcg (2,000 unit) Capsule 50 mcg PO DAILY mirabegron [Myrbetriq] 50 mg tablet extended release 24 hr 50 mg PO DAILY losartan 25 mg tablet 25 mg PO QDAY Qty: 90 0RF Rx Instructions: Stop losartan if SBP drops below 100 and DBP below 60 Rybelsus 14 mg tablet 14 mg PO QDAY Qty: 90 0RF (DME) blood-glucose meter Misc See Rx Instructions .Route Qty: 1 0RF Rx Instructions: As directed (DME) lancets 30 gauge misc See Rx Instructions .Route Qty: 100 0RF Rx Instructions: As directed (DME) Accu-Chek Guide test strips Strip See Rx Instructions .Route Qty: 50 0RF Rx Instructions: As directed multivitamin with folic acid [Tab-A-Willi] 400 mcg Tablet 1 tab PO QDAY Qty: 90 0RF ciprofloxacin HCl 500 mg tablet 500 mg PO BID Qty: 14 0RF hydrocodone-acetaminophen 5-325 mg tablet 1 tab PO BID MDD 10 PRN (Reason: pain) Qty: 10 0RF levetiracetam [Keppra] 500 mg tablet 500 mg PO BID Qty: 30 1RF tamsulosin 0.4 mg capsule 0.4 mg PO QDAY aripiprazole 15 mg tablet 15 mg PO QDAY Referrals: Karina Gerard [Primary Care Provider] - In 1 week Patient/Caregiver Discharge Instructions Print Language: Austrian MDM Narrative MDM hospital course: I, Federica Adair am scribing for and in the presence of Dr. Bruno. Patient has an acute seizure, history of seizure disorder, history of mood disorder. Plan to increase Keppra to 750 mg, used to take 500 mg. Clinical Information Provided by patient and EMS Medical Records Reviewed EMS Meds/Rx Considered, not Ordered None Labs/Rad/Tests considered, not Ordered None Chronic Illness/Social Conditions Add or document further as needed: Seizure disorder and a mood disorder, takes Keppra. EKG Interpretation EKG #1: Date/time of EK07/03/24 10:05 am EKG interpretation: sinus tachycardia, rate 101, non specific ST-T wave changes, MA interval 155 ms, QRS duration 97 ms, QT/QTc 350/408, P-R-T axis 10, 34, 9 Lab Interpretation Labs: see narrative above Imaging Radiology reports / interpretation(s): Procedure(s): CT head/brain wo con Accession Number(s): [id number] cc: Dylon Bruno MD; Jimmy Grimaldo MD; KARINA GERARD~ Examination: CT brain head without contrast. 2-D sagittal coronal reconstructions Date and time of exam:July 03, 2024 10:56 AM Comparison April 13, 2024 Indications: Seizure this morning CTDI: vol (mGy):63.2 DLP: (mGycm):1385 Technique: Multiple CT axial sections of the brain have been obtained, 5 mm slice thickness. Contrast has not been administered. 2-D sagittal, coronal reconstructions have been obtained Low dose protocols were performed. One or more of the following dose reduction techniques were used; automated exposure control, adjustment of the mA and/or KV according to patient size, use of iterative reconstruction technique. Findings: No significant ventricular enlargement. Intra-axial or extra-axial hemorrhage density is not seen. No mass effect or midline shift Basal cisterns are not remarkable. Fourth ventricle is midline. Prominent cisterna magna Cranial vault intact. Impression: Negative for acute hemorrhage, mass effect or midline shift Consider elective brain MRI follow-up pre and postcontrast, seizure protocol Dictated By: Jimmy Grimaldo MD Medication Administration(s) Medication Administration History Discontinued Medications Levetiracetam (Levetiracetam Inj 100 Mg/Ml Vial 5ml) 1,000 mg IVP X1 ONE Stop: 07/03/24 10:20 Last Admin: 07/03/24 10:30 Dose: 1,000 mg Documented By: PAZ Diagnosis Differential diagnosis: Seizures, mood disorder, chronic history of seizure disorder Most likely dx, and/or detailed dx discussion: Acute seizure, history of seizure disorder, mood disorder. Dispositon Disposition: Discharge Home
--- NOTE | 2024-07-03 10:23 | XR_ITS ---
Examination: CT brain head without contrast. 2-D sagittal coronal reconstructions Date and time of exam:July 03, 2024 10:56 AM Comparison April 13, 2024 Indications: Seizure this morning CTDI: vol (mGy):63.2 DLP: (mGycm):1385 Technique: Multiple CT axial sections of the brain have been obtained, 5 mm slice thickness. Contrast has not been administered. 2-D sagittal, coronal reconstructions have been obtained Low dose protocols were performed. One or more of the following dose reduction techniques were used; automated exposure control, adjustment of the mA and/or KV according to patient size, use of iterative reconstruction technique. Findings: No significant ventricular enlargement. Intra-axial or extra-axial hemorrhage density is not seen. No mass effect or midline shift Basal cisterns are not remarkable. Fourth ventricle is midline. Prominent cisterna magna Cranial vault intact. Impression: Negative for acute hemorrhage, mass effect or midline shift Consider elective brain MRI follow-up pre and postcontrast, seizure protocol
[2024-07-03] MEDS: levETIRAcetam INJ 100 MG/ML VIAL 5ML 1000 MG IVP (10:30)
[2024-07-03 10:59] LABS: Basophils % (Auto) 0 % (0-2.5); Eosinophils # (Auto) 0.1 Thou/mm3 (0.0-0.5); Eosinophils % (Auto) 2 % (0-10); Hematocrit 36.9 % (41.0-53.0); Hemoglobin 13.4 g/dL (13.5-16.0); Immature Granulocytes % (Auto) 0 % (0-0); Immature Granulocytes Auto 0.01 Thou/mm3 (0.00-0.00); Lymphocytes # (Auto) 1.6 Thou/mm3 (1.0-4.8); Lymphocytes % (Auto) 32 % (10-50); Mean Corpuscular HGB Conc 36.3 g/dl (31.0-37.0); Mean Corpuscular Hemoglobin 31.5 pg (25.0-35.0); Mean Corpuscular Volume 87 fL (80-100); Monocytes # (Auto) 0.4 Thou/mm3 (0.0-0.8); Monocytes % (Auto) 7 % (0-12); Neutrophils # (Auto) 2.8 Thou/mm3 (1.8-7.7); Neutrophils % (Auto) 58 % (37-80); Nucleated Red Blood Cell % 0 /100 WBC (0); Platelet Count 123 Thou/mm3 (140-440); RDW Standard Deviation 38.9 fL (35.1-43.9); Red Blood Count 4.26 Miln/mm3 (4.50-5.90); White Blood Count 4.9 Thou/mm3 (3.8-10.6)
[2024-07-03 11:12] LABS: Alanine Aminotransferase 23 U/L (10-49); Albumin, Serum 4.1 gm/dL (3.5-5.0); Albumin/Globulin Ratio 1.7 (1.2-2.2); Alkaline Phosphatase 147 U/L (46-116); Anion Gap 7 (7-16); Aspartate Amino Transferase 25 U/L (0-34); BUN/Creatinine Ratio 9 Ratio (12-20); Bilirubin,Total 0.6 mg/dL (0.3-1.2); Blood Urea Nitrogen 12 mg/dL (9-23); Calcium 8.7 mg/dL (8.3-10.6); Calcium (Corrected) 8.7 mg/dL (8.5-10.1); Carbon Dioxide 33.9 mMol/L (20.0-31.0); Chloride 101 mMol/L (98-107); Creatinine (Component) 1.4 mg/dL (0.6-1.3); Estimated Creatinine Clearance 89.2 mL/min (>60); Globulin 2.4 gm/dL (2.3-3.5); Glucose 133 mg/dL (74-106); Osmolality,Calculated 284 (275-295); Potassium 3.7 mMol/L (3.4-5.1); Sodium 142 mMol/L (136-145); Total Protein 6.5 gm/dL (5.7-8.2); eGFR > 60 See Note
[2024-07-03 11:58] VITALS: BP 125/85; PULSE 83; RESP 14; O2SAT 95
--- NOTE | 2024-07-03 12:47 | PRELIM_ITS ---
CT scan of the head without intravenous contrast (axial sections with sagittal and coronal reformats) July 03, 2024 1056 hours Clinical History: SEIZURE Comparison: No prior study is available for comparison. Findings: There is no evidence of intracranial hemorrhage, mass effect or midline shift. A prominent cisterna magna is incidentally noted. There is mild volume loss. The calvarium is intact. The mastoid air cells and the visualized paranasal sinuses are clear. Impression: No evidence of intracranial hemorrhage, midline shift or calvarial fracture Report Electronically Signed By: Maryan Mc 07/03/2024 12:46:02 PM [EST]
[2024-07-03 12:53] VITALS: BP 112/74; PULSE 68; RESP 16; TEMP 36.8; O2SAT 99
== END 2024-07-03 12:54 | disposition home or self-care (01) ==
PROVIDERS: Emergency Provider Family Medicine; PCP Family Medicine
DX: R56.9 Unspecified convulsions (principal)
CPT/HCPCS: 36415; 70450; 80053; 85025; 93005; 96374; 99284; J1953

== ENCOUNTER 2024-08-28 09:00 | Emergency (ER) | payer OTHER, MEDICAID, SELFPAY ==
[2024-08-28 09:07] VITALS: BP 112/70; PULSE 102; RESP 18; TEMP 37.2; O2SAT 95
[2024-08-28 09:10] VITALS: PULSE 107; RESP 18; O2SAT 96
--- NOTE | 2024-08-28 09:14 | EKG_ITS ---
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
[2024-08-28 09:19] VITALS: BMI 40.1
--- NOTE | 2024-08-28 09:19 | PD.EDSEIZ ---
ED Seizures RME/HPI General Chief Complaint: Seizure Stated Complaint: SEIZURE Time Seen by Provider: 08/28/24 09:18 Arrival date/time: 08/28/24 09:00 Limitations: no limitations RME / HPI RME / HPI Narrative: 48 year old male with history of seizures beginning in 2011 currently on 750mg BID Keppra, schizophrenia, depression, anxiety, bipolar disorder presents to the ED BIBA from [employer] for evaluation of seizure today. States he was grocery shopping when he began to feel his aura which includes dizziness and feeling light headed and sat himself on the floor. Reportedly had a seizure and EMS was called. Denies any new medications. Patient mentioned 1 year ago he was on 1,000mg Keppra ER that was decreased to 500mg BID due to being seizure free for 1 year. However, 3 months ago was increased to 750 mg BID. Denies any recent illness, fever, chills, sweats, chest pain, cough, shortness of breath, or urinary symptoms. Related Data Home Medications ?Medication ?Instructions ?Recorded ?Confirmed atorvastatin 80 mg tablet 80 mg PO QPM 07/27/21 11/28/23 gabapentin 800 mg tablet 800 mg PO TID 07/27/21 11/28/23 sertraline 100 mg tablet 250 mg PO DAILY 07/27/21 11/28/23 aripiprazole 15 mg tablet 15 mg PO QDAY 06/18/23 11/28/23 tamsulosin 0.4 mg capsule 0.4 mg PO QDAY 06/18/23 11/28/23 cholecalciferol (vitamin D3) 50 50 mcg PO DAILY 11/27/23 11/28/23 mcg (2,000 unit) capsule (Vitamin D3) mirabegron 50 mg tablet,extended 50 mg PO DAILY 11/27/23 11/28/23 release 24 hr (Myrbetriq) omeprazole 20 mg capsule,delayed 20 mg PO QDAY 11/27/23 11/28/23 release trazodone 100 mg tablet 100 mg PO QDAY 11/27/23 11/28/23 ursodiol 300 mg capsule 300 mg PO BID 11/27/23 11/28/23 Previous Rx's ?Medication ?Instructions ?Recorded levetiracetam 500 mg tablet 500 mg PO BID #30 tabs 11/24/22 (Keppra) blood sugar diagnostic (Accu-Chek #50 ea 11/28/23 Guide test strips) blood-glucose meter #1 ea 11/28/23 lancets 30 gauge #100 ea 11/28/23 losartan 25 mg tablet 25 mg PO QDAY #90 tabs 11/28/23 multivitamin with folic acid 400 1 tab PO QDAY #90 tabs 11/28/23 mcg tablet (Tab-A-Willi) semaglutide 14 mg tablet (Rybelsus) 14 mg PO QDAY #90 tabs 11/28/23 ciprofloxacin HCl 500 mg tablet 500 mg PO BID #14 tabs 12/19/23 hydrocodone 5 mg-acetaminophen 325 1 tab PO BID PRN pain #10 tabs 01/27/24 mg tablet levetiracetam 750 mg tablet 750 mg PO BID seizure disorder #60 07/03/24 (Keppra) tabs Allergies Allergy/AdvReac Type Severity Reaction Status Date / Time Penicillins Allergy UNKNOWN Verified 08/28/24 09:17 Review of Systems Review of Systems Systems Reviewed: All systems reviewed, normal except as documented Past Medical History Past Medical History NEUROLOGIC: Positive Seizures and Epilepsy CARDIAC: Positive Cardiac Disorders, Hypercholesterolemia and Hypertension RESPIRATORY: Positive Sleep Apnea GASTROINTESTINAL: Positive Gastrointestinal Disorders, Gastroesophageal Reflux Disease and Obesity ENDOCRINE: Positive Endocrine Disorders and Diabetes Mellitus Type 2 PSYCHO/SOCIAL: Positive Schizophrenia, Bipolar Disorder, Depression and Anxiety OTHER HISTORY: Positive Chicken Pox Family History FAMILY HISTORY: Positive Family Cancer Surgical History SURGICAL: Positive Tonsillectomy and Open Reduction Internal Fixation Social History SMOKING STATUS: Never smoker SECOND HAND EXPOSURE: Yes SUBSTANCE USE: does not use ED Exam General Limitations: Present no limitations General appearance: Present alert and in no apparent distress Head Head exam: Present atraumatic, normocephalic and normal inspection Eye Eye exam: Present normal appearance, PERRL and EOMI ENT ENT exam: Present normal oropharynx, mucous membranes moist and other (Edentulous ) Neck Neck exam: Present normal inspection, full ROM and trachea midline Chest Chest inspection: Present normal inspection and symmetric chest wall rise Respiratory Respiratory exam: Present normal lung sounds bilaterally Cardiovascular Cardiovascular exam: Present regular rate, normal rhythm and normal heart sounds Abdominal Exam Abdominal exam: Present soft and normal bowel sounds Extremities Exam Extremities exam: Present normal inspection and full ROM Back Exam Back exam: Present normal inspection and full ROM Neurological Exam Neurological exam: Present alert, oriented X3 and CN II-XII intact Psychiatric Psychiatric exam: Present normal affect and normal mood Skin Skin exam: Present warm, dry, intact and normal color Course Quality Measures none Orders Category Date Time Status Resource Management Specialist NOW Care 08/28/24 09:27 Completed Continuous Pulse Oximetry NOW Care 08/28/24 09:27 Completed EKG (ED ONLY) *Do not use* NOW Care 08/28/24 09:14 Completed IV [Insert IV] NOW Care 08/28/24 09:27 Completed Seizure precautions NOW Care 08/28/24 09:30 Completed EKG (ED Only) Stat Exams 08/28/24 09:14 Draft XR chest 1V portable Stat Exams 08/28/24 09:29 Completed CBC Stat Lab 08/28/24 09:30 Completed CK [Creatine Kinase] Stat Lab 08/28/24 09:30 Completed CMP [Comprehensive Metabolic Panel] Stat Lab 08/28/24 09:30 Completed Lactate (Lactic Acid) Stat Lab 08/28/24 09:30 Completed Magnesium Stat Lab 08/28/24 09:30 Completed LORazepam [Ativan Inj] Med 08/28/24 09:27 Discontinued 1 mg IVP X1 ONE Magnesium Sulfate 1 gm Ivpb [Magnesium Sulfate Ivpb] Med 08/28/24 10:58 Discontinued 1 gm in 100 ml IV X1 Sodium Chloride 0.9% 1000 ml [Ns] 1,000 ml Med 08/28/24 09:27 Discontinued IV 999 mls/hr levETIRAcetam INJ [Keppra Inj] Med 08/28/24 10:58 Discontinued 1,000 mg IVP X1 ONE Vital Signs Vital signs: Vital Signs Temperature 99.0 F 08/28/24 09:07 Pulse Rate 102 H 08/28/24 09:07 Respiratory Rate 18 08/28/24 09:07 Blood Pressure 112/70 08/28/24 09:07 Pulse Oximetry (%) 95 08/28/24 09:07 Oxygen Delivery Method Room Air 08/28/24 09:07 Pulse ox is 95% on room air which is adequate. Seizure MDM Narrative MDM Narrative:: Ai Castrejon, anand scribing for and in the presence of Dr. Dodson. Patient remains clinically stable throughout the emergency department visit. We reviewed all the results, analysis, and treatment plans. Patient is amenable to discharge. Strict return precautions were outlined. Patient was discharged in stable condition. Patient data External records reviewed:: [facility] previous records and EMS form Clinical information provided by:: patient and EMS Social determinants that could affect healthcare access:: none Patient has the following chronic illnesses:: seizures beginning in 2011 currently on 750mg BID Keppra, schizophrenia, depression, anxiety, bipolar disorder How is presenting disease/condition affected by chronic disease/condition?: exacerbated by Evaluation data The following diagnostics were reviewed and interpreted by me:: lab results, radiology exam(s) and EKG tracing(s) (09:14 AM. NSR, HR 99, normal axis, frequent PVCs, no signs of acute ischemia. ) Lab and/or radiology exams considered but not ordered:: None Interpretation Summary: Ordering Physician: Adam Dodson MD Date of Service: 08/28/24 Procedure(s): XR chest 1V portable Accession Number(s): [id number] cc: Jimmy Grimaldo MD; KARINA DALTON; Adam Dodson MD~ Examination: AP chest single view. Technique: AP portable sitting chest single view. Date and time: August 28, 2024, 0958 hrs., Comparison December 19, 2023 Indications: Seizure activity today. Findings: Normal heart size. No aspiration pneumonia. No pulmonary edema. Osseous structures are intact. Impression: Negative for aspiration pneumonia. Dictated By: Jimmy Grimaldo MD Signed By: <Electronically signed by Jimmy Grimaldo MD in OV> 08/28/24 1118 Medications / Prescriptions Medications or Prescriptions considered but not ordered:: None Medication administrations:: Medication Administration History Discontinued Medications Sodium Chloride (Ns) 1,000 mls @ 999 mls/hr IV .Q1H1M ONE Stop: 08/28/24 10:27 Last Infusion: 08/28/24 10:49 Dose: Infused Documented By: Admin: 08/28/24 09:48 Dose: 999 mls/hr Documented By: NELYL Magnesium Sulfate/Dextrose (Magnesium Sulfate Ivpb) 1 gm in 100 mls @ 100 mls/hr IV X1 ONE Stop: 08/28/24 11:57 Last Infusion: 08/28/24 12:13 Dose: Infused Documented By: Admin: 08/28/24 11:13 Dose: 100 mls/hr Documented By: TM Levetiracetam (Levetiracetam Inj 100 Mg/Ml Vial 5ml) 1,000 mg IVP X1 ONE Stop: 08/28/24 10:59 Last Admin: 08/28/24 11:12 Dose: 1,000 mg Documented By: TM Lorazepam (Lorazepam 2 Mg/Ml Vial) 1 mg IVP X1 ONE Stop: 08/28/24 09:28 Last Admin: 08/28/24 09:48 Dose: 1 mg Documented By: NELLY See above Consultations Consultation(s) initiated? (list below): No Diagnosis Seizure Differential Diagnosis: intractable seizure disorder, focal seizure, generalized seizure and epileptic seizure Most likely diagnosis given after review of the tests above:: breakthrough seizure Admission Indicated Admission indicated?: not indicated Admission Request Was there a request for admission?: No Disposition Plan Disposition Plan: Discharge Discharge Attestation Discharge Attestation: The patient and all family members were given an opportunity to ask questions and understood the discharge instructions. Discharge instructions specifically effects, indications for sooner follow up or return to the emergency department, and the expected course of current diagnosis. Patient condition: Stable Discharge Plan Plan Patient Disposition: HOME (Self Care) Discharge Disposition comment: Stable for discharge home Patient condition on transfer: Stable Prescriptions/Referrals Prescriptions/Med Rec: No Action sertraline 100 mg tablet 250 mg PO DAILY gabapentin 800 mg tablet 800 mg PO TID atorvastatin 80 mg Tablet 80 mg PO QPM trazodone 100 mg Tablet 100 mg PO QDAY ursodiol 300 mg capsule 300 mg PO BID Patient Comments: TAKE 1 CAPSULE BY MOUTH TWICE DAILY omeprazole 20 mg Capsule,Delayed Release(Dr/Ec) 20 mg PO QDAY cholecalciferol (vitamin D3) [Vitamin D3] 50 mcg (2,000 unit) Capsule 50 mcg PO DAILY mirabegron [Myrbetriq] 50 mg tablet extended release 24 hr 50 mg PO DAILY losartan 25 mg tablet 25 mg PO QDAY Qty: 90 0RF Rx Instructions: Stop losartan if SBP drops below 100 and DBP below 60 Rybelsus 14 mg tablet 14 mg PO QDAY Qty: 90 0RF (DME) blood-glucose meter Misc See Rx Instructions .Route Qty: 1 0RF Rx Instructions: As directed (DME) lancets 30 gauge misc See Rx Instructions .Route Qty: 100 0RF Rx Instructions: As directed (DME) Accu-Chek Guide test strips Strip See Rx Instructions .Route Qty: 50 0RF Rx Instructions: As directed multivitamin with folic acid [Tab-A-Willi] 400 mcg Tablet 1 tab PO QDAY Qty: 90 0RF ciprofloxacin HCl 500 mg tablet 500 mg PO BID Qty: 14 0RF hydrocodone-acetaminophen 5-325 mg tablet 1 tab PO BID MDD 10 PRN (Reason: pain) Qty: 10 0RF levetiracetam [Keppra] 750 mg tablet 750 mg PO BID MDD 2 Qty: 60 0RF levetiracetam [Keppra] 500 mg tablet 500 mg PO BID Qty: 30 1RF tamsulosin 0.4 mg capsule 0.4 mg PO QDAY aripiprazole 15 mg tablet 15 mg PO QDAY Referrals: Karina Dalton [Primary Care Provider] - In 1 week Problem List Clinical Impression: Breakthrough seizure Patient/Caregiver Discharge Instructions Discharge Activity: activity as tolerated Education Materials: ED Seizure, Recurrent (Adult) Additional Instructions: Please return to the emergency department if you have any worsening or any further medical problems and we will help you. Otherwise you should follow-up with your primary care doctor within the next several days Print Language: Turkish Stand Alone Forms: Ann Award Info., Patient Portal Info Letter
--- NOTE | 2024-08-28 09:29 | XR_ITS ---
Examination: AP chest single view. Technique: AP portable sitting chest single view. Date and time: August 28, 2024, 0958 hrs., Comparison December 19, 2023 Indications: Seizure activity today. Findings: Normal heart size. No aspiration pneumonia. No pulmonary edema. Osseous structures are intact. Impression: Negative for aspiration pneumonia.
[2024-08-28 09:47] LABS: Lactate (Lactic Acid) 2.4 mMol/L (0.4-2.0)
[2024-08-28] MEDS: SODIUM CHLORIDE 0.9% 1000 ML 1,000 ML 999 ML IV (09:48)
[2024-08-28] MEDS: LORazepam 2 MG/ML VIAL 1 MG IVP (09:48)
[2024-08-28 09:53] LABS: Basophils # (Auto) 0.0 Thou/mm3 (0.0-0.2); Basophils % (Auto) 0 % (0-2.5); Eosinophils # (Auto) 0.1 Thou/mm3 (0.0-0.5); Eosinophils % (Auto) 2 % (0-10); Hematocrit 38.2 % (41.0-53.0); Hemoglobin 13.9 g/dL (13.5-16.0); Immature Granulocytes Auto 0.01 Thou/mm3 (0.00-0.00); Lymphocytes # (Auto) 1.1 Thou/mm3 (1.0-4.8); Lymphocytes % (Auto) 24 % (10-50); Mean Corpuscular HGB Conc 36.4 g/dl (31.0-37.0); Mean Corpuscular Hemoglobin 31.7 pg (25.0-35.0); Mean Corpuscular Volume 87 fL (80-100); Monocytes # (Auto) 0.3 Thou/mm3 (0.0-0.8); Monocytes % (Auto) 6 % (0-12); Neutrophils # (Auto) 3.0 Thou/mm3 (1.8-7.7); Neutrophils % (Auto) 67 % (37-80); Nucleated Red Blood Cell # 0.00 Thou/mm3 (0.00-0.00); Nucleated Red Blood Cell % 0 /100 WBC (0); Platelet Count 138 Thou/mm3 (140-440); RDW Standard Deviation 39.5 fL (35.1-43.9); Red Blood Count 4.39 Miln/mm3 (4.50-5.90); White Blood Count 4.5 Thou/mm3 (3.8-10.6)
[2024-08-28 10:26] LABS: Alanine Aminotransferase 20 U/L (10-49); Albumin, Serum 4.3 gm/dL (3.5-5.0); Albumin/Globulin Ratio 1.7 (1.2-2.2); Alkaline Phosphatase 143 U/L (46-116); Anion Gap 11 (7-16); Aspartate Amino Transferase 23 U/L (0-34); BUN/Creatinine Ratio 6 Ratio (12-20); Bilirubin,Total 0.7 mg/dL (0.3-1.2); Blood Urea Nitrogen 9 mg/dL (9-23); Calcium 9.4 mg/dL (8.3-10.6); Calcium (Corrected) 9.4 mg/dL (8.5-10.1); Carbon Dioxide 29.4 mMol/L (20.0-31.0); Chloride 99 mMol/L (98-107); Creatine Kinase 81 U/L (34-171); Creatinine (Component) 1.6 mg/dL (0.6-1.3); Estimated Creatinine Clearance 76.4 mL/min (>60); Globulin 2.6 gm/dL (2.3-3.5); Glucose 209 mg/dL (74-106); Magnesium 1.5 mg/dL (1.6-2.6); Osmolality,Calculated 282 (275-295); Potassium 3.6 mMol/L (3.4-5.1); Sodium 139 mMol/L (136-145); Total Protein 6.9 gm/dL (5.7-8.2); eGFR 53 See Note
[2024-08-28 10:59] VITALS: BP 144/90; PULSE 89; RESP 16; TEMP 36.8; O2SAT 97
[2024-08-28] MEDS: levETIRAcetam INJ 100 MG/ML VIAL 5ML 1000 MG IVP (11:12)
[2024-08-28 12:10] VITALS: BP 156/89; PULSE 82; RESP 16; TEMP 36.6; O2SAT 96
[2024-08-28 12:46] LABS: Reflex Lactate? Y
--- NOTE | 2024-08-28 13:04 | PC.NURSE ---
booked transport for pt, pt out front waiting for ride. ambulates independently w/steady gait.
--- NOTE | 2024-08-28 13:26 | PC.CC ---
Addendum entered by Faby Rodríguez 08/28/24 13:33: ASW received a message from [employer] stating there were no available drivers. ASW contacted [facility] and scheduled an On Demand trip for the pt. Pt will be picked up at 1350 . Original Note: ASW arranged transportation for the pt via [employer].
== END 2024-08-28 13:06 | disposition home or self-care (01) ==
PROVIDERS: Emergency Provider Emergency Medicine; PCP Family Medicine
DX: G40.909 Epilepsy, unspecified, not intractable, without status epilepticus (principal); R94.31 Abnormal electrocardiogram [ECG] [EKG]
CPT/HCPCS: 36415; 71045; 80053; 82550; 83605; 83735; 85025; 93005; 96361; 96365; 96375; 99283; J1953; J2060; J3475; J7030

== ENCOUNTER 2024-10-03 09:28 | Emergency (ER) | payer OTHER, MEDICAID, SELFPAY ==
[2024-10-03 09:31] VITALS: BP 82/56; PULSE 101; PULSE 95; RESP 18; TEMP 37; O2SAT 95; O2SAT 99; BMI 39.5
[2024-10-03 09:36] VITALS: BP 73/56; PULSE 99; RESP 20; O2SAT 96
--- NOTE | 2024-10-03 09:36 | XR_ITS ---
Examination: AP chest single view TECHNIQUE: AP portable upright chest single view Date and time: October 03, 2024, 0950 hours INDICATIONS: Chest pain beginning 2 days ago. FINDINGS: Normal heart size. Lungs are clear. The osseous structures are intact. IMPRESSION: No active disease.
--- NOTE | 2024-10-03 09:38 | PD.EDCHEST ---
ED Chest Pain RME/HPI General Chief Complaint: Chest Pain Stated Complaint: CHEST PAIN Time Seen by Provider: 10/03/24 09:34 Arrival date/time: 10/03/24 09:28 Limitations: no limitations RME / HPI RME / HPI narrative: 48 year old male with history of seizures beginning in 2011, orthostatic hypotension, schizophrenia, depression, anxiety, bipolar disorder presents to the ED BIBA for evaluation of chest pain beginning this morning while gardening. Described as sharp in sensation located most to the left side of chest with radiation to his left arm, rating as severe. Accompanied by nausea. Per medics, patient was given 1 SL Nitro and placed 1 of Nitro paste. Denies fevers, chills, sweats, hemoptysis, recent travel, abdominal pain, vomiting, diarrhea, constipation, or urinary symptoms. Related Data Home Medications ?Medication ?Instructions ?Recorded ?Confirmed atorvastatin 80 mg tablet 80 mg PO QPM 07/27/21 11/28/23 gabapentin 800 mg tablet 800 mg PO TID 07/27/21 11/28/23 sertraline 100 mg tablet 250 mg PO DAILY 07/27/21 11/28/23 aripiprazole 15 mg tablet 15 mg PO QDAY 06/18/23 11/28/23 tamsulosin 0.4 mg capsule 0.4 mg PO QDAY 06/18/23 11/28/23 cholecalciferol (vitamin D3) 50 50 mcg PO DAILY 11/27/23 11/28/23 mcg (2,000 unit) capsule (Vitamin D3) mirabegron 50 mg tablet,extended 50 mg PO DAILY 11/27/23 11/28/23 release 24 hr (Myrbetriq) omeprazole 20 mg capsule,delayed 20 mg PO QDAY 11/27/23 11/28/23 release trazodone 100 mg tablet 100 mg PO QDAY 11/27/23 11/28/23 ursodiol 300 mg capsule 300 mg PO BID 11/27/23 11/28/23 Previous Rx's ?Medication ?Instructions ?Recorded levetiracetam 500 mg tablet 500 mg PO BID #30 tabs 11/24/22 (Keppra) blood sugar diagnostic (Accu-Chek #50 ea 11/28/23 Guide test strips) blood-glucose meter #1 ea 11/28/23 lancets 30 gauge #100 ea 11/28/23 losartan 25 mg tablet 25 mg PO QDAY #90 tabs 11/28/23 multivitamin with folic acid 400 1 tab PO QDAY #90 tabs 11/28/23 mcg tablet (Tab-A-Willi) semaglutide 14 mg tablet (Rybelsus) 14 mg PO QDAY #90 tabs 11/28/23 ciprofloxacin HCl 500 mg tablet 500 mg PO BID #14 tabs 12/19/23 hydrocodone 5 mg-acetaminophen 325 1 tab PO BID PRN pain #10 tabs 01/27/24 mg tablet levetiracetam 750 mg tablet 750 mg PO BID seizure disorder #60 07/03/24 (Keppra) tabs Allergies Allergy/AdvReac Type Severity Reaction Status Date / Time Penicillins Allergy UNKNOWN Verified 10/03/24 09:36 Review of Systems Review of Systems Systems Reviewed: All systems reviewed, normal except as documented Past Medical History Past Medical History NEUROLOGIC: Positive Seizures and Epilepsy CARDIAC: Positive Cardiac Disorders, Hypercholesterolemia, Hypertension and Hypotension RESPIRATORY: Positive Sleep Apnea GASTROINTESTINAL: Positive Gastrointestinal Disorders, Gastroesophageal Reflux Disease and Obesity ENDOCRINE: Positive Endocrine Disorders and Diabetes Mellitus Type 2 PSYCHO/SOCIAL: Positive Schizophrenia, Bipolar Disorder, Depression and Anxiety OTHER HISTORY: Positive Chicken Pox Family History FAMILY HISTORY: Positive Family Cancer Surgical History SURGICAL: Positive Tonsillectomy and Open Reduction Internal Fixation Social History SMOKING STATUS: Never smoker SECOND HAND EXPOSURE: Yes SUBSTANCE USE: does not use ED Exam General Limitations: Present no limitations General appearance: Present alert and in no apparent distress Head Head exam: Present atraumatic Eye Eye exam: Present normal appearance, PERRL and EOMI ENT ENT exam: Present normal exam, normal oropharynx and mucous membranes moist Neck Neck exam: Present normal inspection, full ROM and trachea midline Chest Chest inspection: Present normal inspection and symmetric chest wall rise Respiratory Respiratory exam: Present normal lung sounds bilaterally Cardiovascular Cardiovascular exam: Present normal rhythm, tachycardia and normal heart sounds Abdominal Exam Abdominal exam: Present soft; Absent distention, tenderness, guarding, rebound or rigidity Extremities Exam Extremities exam: Present normal inspection and full ROM Back Exam Back exam: Present normal inspection and full ROM Neurological Exam Neurological exam: Present alert, oriented X3 and CN II-XII intact Psychiatric Psychiatric exam: Present normal affect and normal mood Skin Skin exam: Present warm, dry, intact and normal color Course Quality Measures none Orders Category Date Time Status Bedside COVID-19 Antigen Test NOW Care 10/03/24 09:36 Completed Bedside Influenza A&B Antigen Test NOW Care 10/03/24 09:36 Completed CXR [XR chest 1V] Stat Exams 10/03/24 09:36 Completed EKG (ED Only) Stat Exams 10/03/24 14:27 Draft CBC Stat Lab 10/03/24 09:52 Completed CK [Creatine Kinase] Stat Lab 10/03/24 09:52 Completed CMP [Comprehensive Metabolic Panel] Stat Lab 10/03/24 09:52 Completed Drug Screen,Urine Stat Lab 10/03/24 10:32 Completed Lipase Stat Lab 10/03/24 09:52 Completed Troponin I Stat Lab 10/03/24 09:52 Completed Troponin I Stat Lab 10/03/24 12:35 Completed UA, C/S IF [Urinalysis, C/S if Indicated] Stat Lab 10/03/24 10:32 Completed Urine Culture Stat Lab 10/03/24 10:32 Completed Magnesium Sulfate 1 gm Ivpb [Magnesium Sulfate Ivpb] Med 10/03/24 14:33 Discontinued 1 gm in 100 ml IV X1 Ringers Lactated 1000 ml [Lactated Ringers] 1,000 ml Med 10/03/24 09:42 Discontinued IV 999 mls/hr Vital Signs Vital signs: Vital Signs Temperature 98.6 F 10/03/24 09:31 Pulse Rate 101 H 10/03/24 09:31 Respiratory Rate 18 10/03/24 09:31 Blood Pressure 82/56 L 10/03/24 09:31 Pulse Oximetry (%) 95 10/03/24 09:31 Oxygen Delivery Method Room Air 10/03/24 09:31 Pulse ox is 95% on room air which is adequate. Chest Pain MDM Narrative MDM Narrative:: Patient is a 48-year-old male seen emerged from concerns for chest pain. Vital signs and exam as listed. Concern for ACS arrhythmia electrolyte abnormality among others. Ordered labs EKG chest x-ray offered medication for symptom relief. Labs without any acute hematologic abnormality, no significant electrolyte abnormality, patient creatinine 1.6 at patient's baseline. No transaminitis, troponin not elevated on 2 different assessments. Chest x-ray unremarkable. EKG performed today at 9:32 AM, sinus rhythm, normal intervals, nonspecific T wave changes, not a cardiac alert. 2:35p discussed with Dr. 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 Advised patient can be discharged home. Patient HD stable throughout time in ED, unclear if initial blood pressure recorded was in errror, however, patient did not have any recurrence of low blood pressures while in the ED. On reevaluation patient hemodynamically stable, not in distress. Will discharge home close return precautions follow-up with your family doctor. Patient data External records reviewed:: [facility] previous records (I reviewed ED Visit on 08/28/2024 ) and EMS form Clinical information provided by:: patient and EMS Social determinants that could affect healthcare access:: none Patient has the following chronic illnesses:: seizures beginning in 2011, orthostatic hypotension, schizophrenia, depression, anxiety, bipolar disorder How is presenting disease/condition affected by chronic disease/condition?: exacerbated by Evaluation data The following diagnostics were reviewed and interpreted by me:: lab results, radiology exam(s) and EKG tracing(s) Lab and/or radiology exams considered but not ordered:: None Interpretation Summary: Ordering Physician: Deepika Day MD Date of Service: 10/03/24 Procedure(s): XR chest 1V Accession Number(s): [id number] cc: Jimmy Grimaldo MD; Deepika Day MD~ Examination: AP chest single view TECHNIQUE: AP portable upright chest single view Date and time: October 03, 2024, 0950 hours INDICATIONS: Chest pain beginning 2 days ago. FINDINGS: Normal heart size. Lungs are clear. The osseous structures are intact. IMPRESSION: No active disease. Dictated By: Jimmy Grimaldo MD Signed By: <Electronically signed by Jimmy Grimaldo MD in [place]> 10/03/24 1007 Medications / Prescriptions Medications or Prescriptions considered but not ordered:: None Medication administrations:: Medication Administration History Discontinued Medications Lactated Ringer's (Lactated Ringers) 1,000 mls @ 999 mls/hr IV .Q1H1M ONE Stop: 10/03/24 10:42 Last Infusion: 10/03/24 10:46 Dose: Infused Documented By: Admin: 10/03/24 09:45 Dose: 999 mls/hr Documented By: GM Magnesium Sulfate/Dextrose (Magnesium Sulfate Ivpb) 1 gm in 100 mls @ 100 mls/hr IV X1 ONE Stop: 10/03/24 15:32 Last Infusion: 10/03/24 15:40 Dose: Infused Documented By: Admin: 10/03/24 14:40 Dose: 100 mls/hr Documented By: WAGNER See above Consultations Consultation(s) initiated? (list below): Yes Consultation #1 (Physician, Specialty, Details): See MDM Diagnosis Most likely diagnosis given after review of the tests above:: Chest pain Admission Indicated Admission indicated?: not indicated Admission Request Was there a request for admission?: No Disposition Plan Disposition Plan: Discharge Discharge Attestation Discharge Attestation: The patient and all family members were given an opportunity to ask questions and understood the discharge instructions. Discharge instructions specifically effects, indications for sooner follow up or return to the emergency department, and the expected course of current diagnosis. Patient condition: Stable Discharge Plan Plan Patient Disposition: HOME (Self Care) Prescriptions/Referrals Prescriptions/Med Rec: No Action sertraline 100 mg tablet 250 mg PO DAILY gabapentin 800 mg tablet 800 mg PO TID atorvastatin 80 mg Tablet 80 mg PO QPM trazodone 100 mg Tablet 100 mg PO QDAY ursodiol 300 mg capsule 300 mg PO BID Patient Comments: TAKE 1 CAPSULE BY MOUTH TWICE DAILY omeprazole 20 mg Capsule,Delayed Release(Dr/Ec) 20 mg PO QDAY cholecalciferol (vitamin D3) [Vitamin D3] 50 mcg (2,000 unit) Capsule 50 mcg PO DAILY mirabegron [Myrbetriq] 50 mg tablet extended release 24 hr 50 mg PO DAILY losartan 25 mg tablet 25 mg PO QDAY Qty: 90 0RF Rx Instructions: Stop losartan if SBP drops below 100 and DBP below 60 Rybelsus 14 mg tablet 14 mg PO QDAY Qty: 90 0RF (DME) blood-glucose meter Misc See Rx Instructions .Route Qty: 1 0RF Rx Instructions: As directed (DME) lancets 30 gauge misc See Rx Instructions .Route Qty: 100 0RF Rx Instructions: As directed (DME) Accu-Chek Guide test strips Strip See Rx Instructions .Route Qty: 50 0RF Rx Instructions: As directed multivitamin with folic acid [Tab-A-Willi] 400 mcg Tablet 1 tab PO QDAY Qty: 90 0RF ciprofloxacin HCl 500 mg tablet 500 mg PO BID Qty: 14 0RF hydrocodone-acetaminophen 5-325 mg tablet 1 tab PO BID MDD 10 PRN (Reason: pain) Qty: 10 0RF levetiracetam [Keppra] 750 mg tablet 750 mg PO BID MDD 2 Qty: 60 0RF levetiracetam [Keppra] 500 mg tablet 500 mg PO BID Qty: 30 1RF tamsulosin 0.4 mg capsule 0.4 mg PO QDAY aripiprazole 15 mg tablet 15 mg PO QDAY Referrals: No Primary/Family,Physician [Primary Care Provider] - In 1 week Problem List Clinical Impression: Chest pain Patient/Caregiver Discharge Instructions Education Materials: ED Chest Pain, Noncardiac Additional Instructions: Please call your loading machine operator and request an appointment to be evaluated this week. Your labs EKG and chest x-ray were reassuring today. If you have any recurrence of symptoms or symptoms return please return to the emergency room immediately. Print Language: Kosovan Stand Alone Forms: Ann Award Info., Patient Portal Info Letter
[2024-10-03] MEDS: RINGERS LACTATED 1000 ML 1,000 ML 999 ML IV (09:45)
[2024-10-03 09:50] VITALS: BP 101/56; PULSE 93
[2024-10-03 10:21] LABS: Alanine Aminotransferase 21 U/L (10-49); Albumin, Serum 4.1 gm/dL (3.5-5.0); Albumin/Globulin Ratio 2.0 (1.2-2.2); Alkaline Phosphatase 125 U/L (46-116); Anion Gap 10 (7-16); Aspartate Amino Transferase 23 U/L (0-34); BUN/Creatinine Ratio 6 Ratio (12-20); Bilirubin,Total 0.5 mg/dL (0.3-1.2); Blood Urea Nitrogen 9 mg/dL (9-23); Calcium 9.4 mg/dL (8.3-10.6); Calcium (Corrected) 9.4 mg/dL (8.5-10.1); Carbon Dioxide 28.3 mMol/L (20.0-31.0); Chloride 101 mMol/L (98-107); Creatine Kinase 74 U/L (34-171); Creatinine (Component) 1.6 mg/dL (0.6-1.3); Estimated Creatinine Clearance 73.5 mL/min (>60); Globulin 2.1 gm/dL (2.3-3.5); Glucose 163 mg/dL (74-106); Lipase 45 U/L (12-53); Osmolality,Calculated 280 (275-295); Potassium 3.8 mMol/L (3.4-5.1); Sodium 139 mMol/L (136-145); Total Protein 6.2 gm/dL (5.7-8.2); Troponin I < 0.020 ng/mL (0.0-0.045); eGFR 53 See Note
[2024-10-03 10:30] LABS: Basophils # (Auto) 0.0 Thou/mm3 (0.0-0.2); Basophils % (Auto) 0 % (0-2.5); Eosinophils # (Auto) 0.1 Thou/mm3 (0.0-0.5); Eosinophils % (Auto) 1 % (0-10); Hematocrit 36.0 % (41.0-53.0); Hemoglobin 12.8 g/dL (13.5-16.0); Immature Granulocytes Auto 0.01 Thou/mm3 (0.00-0.00); Lymphocytes # (Auto) 1.3 Thou/mm3 (1.0-4.8); Lymphocytes % (Auto) 26 % (10-50); Mean Corpuscular HGB Conc 35.6 g/dl (31.0-37.0); Mean Corpuscular Hemoglobin 31.3 pg (25.0-35.0); Mean Corpuscular Volume 88 fL (80-100); Monocytes # (Auto) 0.3 Thou/mm3 (0.0-0.8); Monocytes % (Auto) 7 % (0-12); Neutrophils # (Auto) 3.2 Thou/mm3 (1.8-7.7); Neutrophils % (Auto) 66 % (37-80); Nucleated Red Blood Cell # 0.00 Thou/mm3 (0.00-0.00); Nucleated Red Blood Cell % 0 /100 WBC (0); Platelet Count 131 Thou/mm3 (140-440); RDW Standard Deviation 40.9 fL (35.1-43.9); Red Blood Count 4.09 Miln/mm3 (4.50-5.90); White Blood Count 4.9 Thou/mm3 (3.8-10.6)
[2024-10-03 10:39] LABS: Collection Type, Urine Clean Catch; Squamous Epithelial Cell,Urine 0 /hpf (0-5)
[2024-10-03 10:46] VITALS: BP 142/72; PULSE 93; RESP 18; TEMP 36.8; O2SAT 95
[2024-10-03 10:55] LABS: Amphetamine/Methamp Scrn,U Negative (Negative); Barbiturate Screen,Urine Negative (Negative); Benzodiazepines Screen,Urine Negative (Negative); Benzoylecgonine Screen, Ur Negative (Negative); Fentanyl Screen,Urine Negative (Negative); Opiate Screen,Urine Negative (Negative); THC Screen,Urine Negative (Negative)
[2024-10-03 11:10] LABS: Bilirubin,Urine Negative (Negative); Blood,Urine Negative (Negative); Color,Urine Lt-Yellow (Lt Yel-Yel); Glucose, Urine 4+ (Negative); Ketones,Urine Negative (Negative); Leukocyte Esterase,Urine Positive (Negative); Nitrite,Urine Negative (Negative); PH,Urine 6.5 (5.0-7.0); Protein,Urine 1+ (Neg - Trace); RBC,Urine 2 /hpf (0-3); Specific Gravity,Urine 1.010 (1.001-1.035); Urobilinogen,Urine Negative mg/dL (0.0-1.0); WBC,Urine 15 /hpf (0-5)
[2024-10-03 11:13] LABS: Clarity,Urine Hazy (Clear/Hazy); Culture Indicated,Urine Yes
[2024-10-03 12:37] VITALS: BP 117/76; PULSE 86; RESP 18; TEMP 36.8; O2SAT 98
[2024-10-03 13:23] LABS: Troponin I < 0.020 ng/mL (0.0-0.045)
--- NOTE | 2024-10-03 14:27 | EKG_ITS ---
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[id number] Requested By: Deepika Miller Order Number: [id number] Reading MD: Deepika Miller Measurements Intervals [place] Rate: 98 P: 10 CT: 157 QRS: 43 QRSD: 102 T: 8 QT: 366 QTc: 469 Interpretive Statements SINUS RHYTHM INTERMITTENT VENTRICULAR PREEXCITATION / WPW INDETERMINATE AXIS LOW QRS VOLTAGE IN PRECORDIAL LEADS [QRS DEFLECTION < 1.0 mV IN CHEST LEADS] PATTERN CONSISTENT WITH PULMONARY DISEASE CRITICAL TEST RESULT Compared to ECG 08/28/2024 09:14:27 Ventricular preexcitation now present Low QRS voltage now present Ventricular premature complex(es) no longer present /store/S0/[id number].pdf
[2024-10-03 15:52] VITALS: BP 160/112; PULSE 83; RESP 18; TEMP 36.4; O2SAT 97
== END 2024-10-03 15:53 | disposition home or self-care (01) ==
PROVIDERS: Emergency Provider Emergency Medicine
DX: R07.9 Chest pain, unspecified (principal); F20.9 Schizophrenia, unspecified; F31.9 Bipolar disorder, unspecified; F41.9 Anxiety disorder, unspecified
CPT/HCPCS: 36415; 71045; 80053; 80307; 81001; 82550; 83690; 83735; 84484; 85025; 87077; 87086; 87186; 87400; 87811; 96361; 96365; 99283; J3475; J7120